=== PATIENT | female | born 1955 | race Caucasian/White ===

== ENCOUNTER 2021-02-10 08:59 | Inpatient (IN) ==
[2021-02-10] MEDS ORDERED: SODIUM CHLORIDE 0.9% 1000ML 1,000 ML IV STA (09:38)
[2021-02-10] MEDS ORDERED: dexAMETHasone**PF** 10 MG/ML VIAL IV ONE (09:38)
[2021-02-10 09:53] LABS: Hematocrit (blood only) 41.8 % (37-47); Mean Corpuscular Hemoglobin 29.6 pg (25-34); Mean Corpuscular Hgb Conc 33.5 g/dL (32-36); Mean Corpuscular Volume 88.4 fL (80-100); Mean Platelet Volume 10.7 fL (7.4-10.4); Platelet Count 198 K/uL (130-400); RDW Coefficient of Variation 13.3 % (11.5-14.5); RDW Standard Deviation 43.3 fL (36.4-46.3); Red Blood Count 4.73 M/uL (4.2-5.4)
[2021-02-10 10:07] LABS: INR 1.1 (0.9-1.1); Partial Thromboplastin Ratio 0.9; Partial Thromboplastin Time 23.9 Seconds (21.0-31.0); Prothrombin Time 10.8 Seconds (9.0-12.0)
[2021-02-10 10:11] LABS: Alanine Aminotransferase 68 U/L (12-78); Albumin Level 2.9 gm/dl (3.4-5.0); Aspartate Aminotransferase 105 U/L (15-37); BUN Creatinine Ratio 22.7 (10-20); Blood Urea Nitrogen 30 mg/dl (7-18); Calcium 8.8 mg/dl (8.5-10.1); Carbon Dioxide 28 mmol/L (21-32); Chloride 99 mmol/L (98-107); Creatinine Clr Calc Pharmacy 42.4 ml/min; Est GFR (African American) 48.3 ml/min; Est GFR (Non-African American) 41.6 ml/min; Glucose 122 mg/dl (70-99); Magnesium 2.1 mg/dl (1.8-2.4); Potassium 3.4 mmol/L (3.5-5.1); Sodium 135 mmol/L (136-145)
[2021-02-10 10:12] LABS: Basophils # (auto) 0.05 K/uL (0-0.2); Basophils % (auto) 0.6 %; Immature Granulocytes # (auto) 0.02 K/uL (0.00-0.02); Immature Granulocytes % (auto) 0.2 %; Lymphocytes # (auto) 0.91 K/uL (1.2-3.4); Lymphocytes % (auto) 10.8 %; Neutrophils # (auto) 6.92 K/uL (1.4-6.5); Neutrophils % (auto) 82.4 %
--- NOTE | 2021-02-10 10:13 | Emergency Department Note ---
Impression & Plan COVID-19, Hypoxia, Rapid atrial fibrillation ED Provider Note INFORMANT: Patient ED PROVIDER(S): Miles Monte MD CHIEF COMPLAINT: Illness PLAN: Disposition: Admitted Condition: Good Outpatient prescription management: none Referral: None MEDICAL DECISION MAKING: Patient presented to the ER because of illness. Her was diagnosed with COVID-19 as an outpatient. Confirmation Covid testing was performed. IV was established and he was hydrated. Patient was given IV Decadron as she was hypoxic. Chest x-ray was concerning for pneumonia. The patient's Covid test is positive. She had a chest CT performed due to a positive D-dimer and this was consistent with Covid pneumonia. Hiatal hernia noted per radiology as well. The patient will need further management in the hospital. Consultation was made with Dr. Marc Perez of the [facility] service. Patient was evaluated in the ER for further management. Triage Nursing notes reviewed and agree them. Vital Signs: reviewed and remarkable for hypoxia for EMS Differential diagnosis: COVID-19, reactive airway disease, pneumonia, pneumothorax, COPD, CHF, infections, cardiac ischemia, pulmonary embolism, musculoskeletal, gastrointestinal, as well as other pathologies. Diagnostics interpreted by me: ECG: Rate: 119 Rhythm: Atrial fibrillation [place]:Normal QRS:Normal ST segements: Nonspecific ST. No elevation or depression Other:No PACs or PVCs Cardiac Monitoring: Cardiac monitoring ordered by me: The patient was placed on continuous cardiac monitoring and observed. It revealed a normal sinus rhythm at 78 beats per minute. Imaging studies: Chest x-ray concerning for pneumonia. CT imaging did not reveal any evidence of fibrillation. Covid pneumonia findings present. Hiatal hernia noted. I refer you to the EMR for further details. HPI: The patient is a 65 year old female who presents to the Emergency Room with complaints of illness. This started 2 weeks ago, her was diagnosed with COVID-19. The patient also notes the following associated symptoms, diarrhea, nausea, fevers, chills shortness of breath, weakness, and cough. The patient has found no relieving factors. Patient was prescribed prednisone by her PCP but did not take it. Patient also notes some mild back pain with coughing. Current pain is rated as 2/10. Patient's O2 saturation for EMS was 86%. Pt denies LOC, headache, diaphoresis, visual changes, neck pain, chest pain, vomiting, melena, hematochezia, urinary symptoms, numbness, weakness, lymphadenopathy, rash, or other complaints. ROS: See above HPI for pertinent positives & negatives. A total of 10 systems reviewed and were otherwise negative. PAST MEDICAL HISTORY:See Below , atrial fibrillation. Anticoagulated. PAST SURGICAL HISTORY:See Below, FAMILY HISTORY:See Below SOCIAL HISTORY:See Below, HOME MEDICATIONS:See Below ALLERGIES:See Below VITALS:See Below PHYSICAL EXAMINATION: GENERAL: Awake,tired, dyspneic-appearing, in no distress HENT: Normocephalic, atraumatic. Oropharynx unremarkable. EYES: Normal conjunctiva. Sclera non-icteric. NECK: Inspection normal. Non-tender. Supple. No nuchal rigidity. FROM. No masses. RESPIRATORY: Few scattered crackles otherwise clear to auscultation. No wheezes. Increased respiratory effort. CARDIAC: Tachycardic rate. Irregular rhythm. No murmurs. No rubs. Extremities warm and well perfused. Pulses equal. No JVD. GI: Soft, non-distended. No tenderness to palpation. No rebound or guarding. No masses. RECTAL: Deferred. MUSCULOSKELETAL: Atraumatic. Chest examination reveals no tenderness. The back is symmetrical on inspection without obvious abnormality. There is no CVA tenderness to palpation. No joint edema. LOWER EXTREMITIES: Calves are equal size bilaterally and non-tender. No edema. No discoloration. NEURO: Normal sensorium. No sensory or motor deficits noted. SKIN: No rash or jaundice noted. CRITICAL CARE: I have personally spent greater than 35 minutes of critical care time in the direct management of this patient. This includes bedside care, interpretation of diagnostic studies, and testing, discussion with consultants, patient, and family members, and other required patient management activities. These minutes are in excess of all separately billable procedures. Miles Monte MD Past Med/Surg History Medical History (Updated 02/10/21 @ 12:44 by Marc Perez MD) Hypothyroid Surgical History No pertinent past surgical history Social History Smoking Status: Never smoker Second Hand Exposure: No; Hx Alcohol Use: Yes Alcohol type: wine Hx Substance Use: No Preferred Language: Belgian Communication Ability: Effective Field Assembly Supervisor Required: No Beliefs That Will Affect Care: None Current Living Situation: Spouse Feels Safe at Home: Yes Assistive Devices: None Allergies Allergies Allergy/AdvReac Type Severity Reaction Status Date / Time No Known Drug Allergies Allergy Unknown NKDA Verified 02/10/21 10:54 Home Meds Home Medications Medication Instructions Recorded Confirmed levothyroxine 25 mcg tablet 25 mcg PO QAM 01/14/20 02/10/21 (Levoxyl) spironolactone 25 mg tablet 75 mg PO QAM 01/14/20 02/10/21 acetaminophen 500 mg tablet 500 mg PO Q6H PRN 02/10/21 02/10/21 (Tylenol Extra Strength) aspirin 81 mg tablet,delayed 81 mg PO QAM 02/10/21 02/10/21 release torsemide 20 mg tablet 10 mg PO QAM 02/10/21 02/10/21 Results & Data (ED) Vital Signs Vital Signs - 24 hr 02/10/21 09:07 02/10/21 09:08 02/10/21 10:03 Temperature 36.9 C Temperature Source Oral Pulse Rate 114 H 118 H Pulse Rate [Apical] Pulse Rate from SpO2 Sensor 98 H Pulse Rhythm [Apical] Pulse Strength [Apical] Respiratory Rate 20 21 Respiratory Effort / Characteristics Respiratory Depth Respiratory Pattern Blood Pressure 107/80 107/80 Blood Pressure [Right Arm] Blood Pressure Mean 89 89 Blood Pressure Mean [Right Arm] Blood Pressure Position [Right Arm] Pulse Oximetry 89 L 95 94 Oxygen Delivery Method Room Air Nasal Cannula Nasal Cannula Oxygen Flow Rate 2 Sepsis Recent Fever Within 48 Hours No Sepsis New/Unexplained Change in Mental Status No Sepsis Action Taken by Nursing No Action Required 02/10/21 10:05 02/10/21 10:38 02/10/21 11:00 Temperature Temperature Source Pulse Rate 120 H 124 H 110 H Pulse Rate [Apical] Pulse Rate from SpO2 Sensor 96 H 124 H 97 H Pulse Rhythm [Apical] Pulse Strength [Apical] Respiratory Rate 20 21 Respiratory Effort / Characteristics Respiratory Depth Respiratory Pattern Blood Pressure 116/88 107/82 Blood Pressure [Right Arm] Blood Pressure Mean 97 90 Blood Pressure Mean [Right Arm] Blood Pressure Position [Right Arm] Pulse Oximetry 94 93 95 Oxygen Delivery Method Nasal Cannula Nasal Cannula Nasal Cannula Oxygen Flow Rate 2 2 2 Sepsis Recent Fever Within 48 Hours Sepsis New/Unexplained Change in Mental Status Sepsis Action Taken by Nursing 02/10/21 11:07 02/10/21 11:30 Temperature Temperature Source Pulse Rate 110 H Pulse Rate [Apical] 127 H Pulse Rate from SpO2 Sensor 103 H Pulse Rhythm [Apical] Regular Pulse Strength [Apical] Normal Respiratory Rate 20 22 Respiratory Effort / Characteristics Non-Labored Spontaneous Respiratory Depth Normal Respiratory Pattern Regular Blood Pressure 124/83 Blood Pressure [Right Arm] 107/82 Blood Pressure Mean 96 Blood Pressure Mean [Right Arm] 90 Blood Pressure Position [Right Arm] Lying Pulse Oximetry 97 97 Oxygen Delivery Method Nasal Cannula Nasal Cannula Oxygen Flow Rate 2 2 Sepsis Recent Fever Within 48 Hours Sepsis New/Unexplained Change in Mental Status Sepsis Action Taken by Nursing Laboratory Data Result diagrams: 02/10/21 09:41 02/10/21 09:41 Lab Results 02/10/21 02/10/21 02/10/21 Range/Units 09:41 09:41 09:41 WBC 8.40 (4.8-10.8) K/uL RBC 4.73 (4.2-5.4) M/uL Hgb 14.0 (12.0-16.0) g/dL Hct 41.8 (37-47) % MCV 88.4 (80-100) fL MCH 29.6 (25-34) pg MCHC 33.5 (32-36) g/dL RDW Std Deviation 43.3 (36.4-46.3) fL RDW Coeff of Nadege 13.3 (11.5-14.5) % Plt Count 198 (130-400) K/uL MPV 10.7 H (7.4-10.4) fL Immature Gran % (Auto) 0.2 % Neut % (Auto) 82.4 % Lymph % (Auto) 10.8 % [place] % (Auto) 6.0 % Eos % (Auto) 0.0 % Baso % (Auto) 0.6 % Neut # (Auto) 6.92 H (1.4-6.5) K/uL Lymph # (Auto) 0.91 L (1.2-3.4) K/uL [place] # (Auto) 0.50 (0.11-0.59) K/uL Eos # (Auto) 0.00 (0-0.5) K/uL Baso # (Auto) 0.05 (0-0.2) K/uL Immature Gran # (Auto) 0.02 (0.00-0.02) K/uL PT 10.8 (9.0-12.0) Seconds INR 1.1 (0.9-1.1) APTT 23.9 (21.0-31.0) Seconds PTT Ratio 0.9 D-Dimer 2110 H* (0-500) ug/L FEU Sodium 135 L (136-145) mmol/L Potassium 3.4 L (3.5-5.1) mmol/L Chloride 99 (98-107) mmol/L Carbon Dioxide 28 (21-32) mmol/L Anion Gap 8.0 (3-11) BUN 30 H (7-18) mg/dl Creatinine 1.32 H (0.6-1.2) mg/dl Est Cr Clr Drug Dosing 42.4 ml/min Est GFR ( Amer) 48.3 ml/min Est GFR (Non-Af Amer) 41.6 ml/min BUN/Creatinine Ratio 22.7 H (10-20) Glucose 122 H (70-99) mg/dl Calcium 8.8 (8.5-10.1) mg/dl Magnesium 2.1 (1.8-2.4) mg/dl Total Bilirubin 1.3 H (0.2-1) mg/dl AST 105 H (15-37) U/L ALT 68 (12-78) U/L Alkaline Phosphatase 66 (45-117) U/L Troponin I < 0.015 (0-0.045) ng/ml NT-Pro-B Natriuret Pep 607 (0-900) pg/ml Total Protein 7.4 (6.4-8.2) gm/dl Albumin 2.9 L (3.4-5.0) gm/dl Globulin 4.5 H (2.5-4.0) gm/dl Albumin/Globulin Ratio 0.6 L (0.9-2) Procalcitonin (0-0.5) ng/ml COVID-19 Eval Order SARS-CoV-2 (PCR) (Negative) 02/10/21 02/10/21 02/10/21 Range/Units 09:41 10:18 10:18 WBC (4.8-10.8) K/uL RBC (4.2-5.4) M/uL Hgb (12.0-16.0) g/dL Hct (37-47) % MCV (80-100) fL MCH (25-34) pg MCHC (32-36) g/dL RDW Std Deviation (36.4-46.3) fL RDW Coeff of Nadege (11.5-14.5) % Plt Count (130-400) K/uL MPV (7.4-10.4) fL Immature Gran % (Auto) % Neut % (Auto) % Lymph % (Auto) % [place] % (Auto) % Eos % (Auto) % Baso % (Auto) % Neut # (Auto) (1.4-6.5) K/uL Lymph # (Auto) (1.2-3.4) K/uL [place] # (Auto) (0.11-0.59) K/uL Eos # (Auto) (0-0.5) K/uL Baso # (Auto) (0-0.2) K/uL Immature Gran # (Auto) (0.00-0.02) K/uL PT (9.0-12.0) Seconds INR (0.9-1.1) APTT (21.0-31.0) Seconds PTT Ratio D-Dimer (0-500) ug/L FEU Sodium (136-145) mmol/L Potassium (3.5-5.1) mmol/L Chloride (98-107) mmol/L Carbon Dioxide (21-32) mmol/L Anion Gap (3-11) BUN (7-18) mg/dl Creatinine (0.6-1.2) mg/dl Est Cr Clr Drug Dosing ml/min Est GFR ( Amer) ml/min Est GFR (Non-Af Amer) ml/min BUN/Creatinine Ratio (10-20) Glucose (70-99) mg/dl Calcium (8.5-10.1) mg/dl Magnesium (1.8-2.4) mg/dl Total Bilirubin (0.2-1) mg/dl AST (15-37) U/L ALT (12-78) U/L Alkaline Phosphatase (45-117) U/L Troponin I (0-0.045) ng/ml NT-Pro-B Natriuret Pep (0-900) pg/ml Total Protein (6.4-8.2) gm/dl Albumin (3.4-5.0) gm/dl Globulin (2.5-4.0) gm/dl Albumin/Globulin Ratio (0.9-2) Procalcitonin 0.38 (0-0.5) ng/ml COVID-19 Eval Order Covid19 at [facility] SARS-CoV-2 (PCR) POSITIVE A* (Negative) Administered Medications Sodium Chloride (Nss 1000ml) 1,000 mls @ 125 mls/hr IV .Q8H STA Stop: 02/10/21 17:37 Last Admin: 02/10/21 10:11 Dose: 125 mls/hr Documented by: [id number] Discontinued Medications Dexamethasone Sodium Phosphate (DexamethasonePf 10 Mg/Ml Vial) 6 mg IV NOW ONE Stop: 02/10/21 09:39 Last Admin: 02/10/21 10:11 Dose: 6 mg Documented by: [id number] Potassium Chloride (K Rocael / Wtr) 10 meq in 100 mls @ 100 mls/hr IV ONE ONE Stop: 02/10/21 11:15 Last Infusion: 02/10/21 16:32 Dose: 0 mls/hr Documented by: [id number] Admin: 02/10/21 11:10 Dose: 100 mls/hr Documented by: [id number] Ioversol (Optiray 320 125ml) 120 ml IV ONCE ONE Stop: 02/10/21 10:28 Last Admin: 02/10/21 10:28 Dose: 120 ml Documented by: [id number] Potassium Chloride (Potassium Chloride Crtab 20 Meq Tabcr) 40 meq PO NOW STA Stop: 02/10/21 10:17 Last Admin: 02/10/21 11:07 Dose: 40 meq Documented by: [id number] Imaging Data Radiologist's Impression: Chest X-Ray 02/10/21 09:33 SINGLE VIEW CHEST CLINICAL HISTORY: Cough and dyspnea. FINDINGS: An AP, portable, upright chest radiograph is compared to study dated 01/14/2020. The heart is top normal for projection.. Multifocal airspace consolidation is seen throughout both lungs. No large pleural effusion or pneumothorax is identified. The skeletal structures are osteopenic. The bony thorax is grossly intact. IMPRESSION: Multifocal airspace consolidation is atypical for pneumonia. Clinical correlation will be required and radiographic follow-up to resolution is recommended. ACT 112: Negative or not required by law. Electronically signed by: Scottie Tinoco M.D. 02/10/2021 10:43 AM Chest CTA 02/10/21 10:18 CHEST CTA for PULMONARY ARTERIES CT DOSE: 517.30 mGycm HISTORY: Positive Covid. Positive d-dimer. Weakness. Shortness of breath. TECHNIQUE: Multiaxial CT images of the chest were performed following the intravenous administration of contrast to evaluate the pulmonary arteries. Maximal intensity projection images were also obtained. A dose lowering technique was utilized adhering to the principles of ALARA. COMPARISON STUDY: None. FINDINGS: Normal caliber thoracic aorta with no evidence for dissection. Nondiagnostic evaluation of the subsegmental pulmonary arteries within the bilateral lower lobes due to the respiratory motion artifact. However, the remaining pulmonary arteries show no filling defects to suggest a pulmonary embolus. The heart is borderline enlarged. No pleural or pericardial effusions. No significant mediastinal lymphadenopathy. A few prominent right hilar lymph nodes. These may be reactive. There is a large hiatus hernia containing the majority of the stomach. Questionable masslike filling defect within the herniated stomach best seen on image 76 which measures 3.4 cm. However, this could represent the collapsed stomach rather than a lesion. Limited views of the upper abdomen demonstrate a normal liver and spleen. No suspicious lytic or blastic osseous lesions. No pneumothorax. The central airways are patent. Multifocal scattered groundglass airspace opacities are seen throughout the lungs. This is consistent with a multifocal viral pneumonia. IMPRESSION: 1. No evidence for pulmonary embolus. 2. Multifocal groundglass airspace opacities seen throughout the lungs consistent with Covid pneumonia. 3. Large hiatus hernia containing the majority the stomach. There is a possible 3.4 cm mass within the herniated stomach. However, this could represent the normal appearing collapsed stomach. Follow-up nonemergent endoscopy or upper GI series is recommended once the patient's pneumonia has resolved for further evaluation. ACT 112: Positive. There are findings on this exam that require communication between the performing entity and the patient following Patient Test Result Information Act ([place] Act 112) guidelines. Electronically signed by: Samuel Goldberg M.D. 02/10/2021 10:54 AM Discharge Plan Visit Data Chief Complaint: Illness Stated Complaint: SOB, DIARRHEA, COVID EXP. ED Provider: Miles Monte Discharge Problem: COVID-19, Hypoxia, Rapid atrial fibrillation Patient Disposition: Admitted As Inpatient Discharge Instructions Interventions: ED Discharge Assessment Last Done: 02/10/21 15:15
[2021-02-10 10:16] LABS: Albumin Globulin Ratio 0.6 (0.9-2); Alkaline Phosphatase 66 U/L (45-117); Bilirubin,Total 1.3 mg/dl (0.2-1); D Dimer 2110 ug/L FEU (0-500); Globulin 4.5 gm/dl (2.5-4.0); NT Pro B Type Natriuretic Pept 607 pg/ml (0-900); Total Protein 7.4 gm/dl (6.4-8.2); Troponin I < 0.015 ng/ml (0-0.045)
[2021-02-10] MEDS ORDERED: POTASSIUM CHLORIDE CRTAB 20 MEQ TABCR PO STA (10:16)
[2021-02-10] MEDS ORDERED: POTASSIUM CHLORIDE / WTR 10 MEQ/100 ML PLCT IV ONE (10:16)
[2021-02-10] MEDS ORDERED: OPTIRAY 320 125ml IV ONE (10:27)
--- NOTE | 2021-02-10 10:44 | XRay Report ---
SINGLE VIEW CHEST CLINICAL HISTORY: Cough and dyspnea. FINDINGS: An AP, portable, upright chest radiograph is compared to study dated 01/14/2020. The heart i s top normal for projection.. Multifocal airspace consolidation is seen throughout both lungs. No lar ge pleural effusion or pneumothorax is identified. The skeletal structures are osteopenic. The bony t horax is grossly intact. IMPRESSION: Multifocal airspace consolidation is atypical for pneumonia. Clinical correlation will be required and radiographic follow-up to resolution is recommended. ACT 112: Negative or not required by law. Electronically signed by: Scottie Tinoco M.D. 02/10/2021 10:43 AM
--- NOTE | 2021-02-10 10:55 | CT Scan Report ---
CHEST CTA for PULMONARY ARTERIES CT DOSE: 517.30 mGycm HISTORY: Positive Covid. Positive d-dimer. Weakness. Shortness of breath. TECHNIQUE: Multiaxial CT images of the chest were performed following the intravenous administration of contrast to evaluate the pulmonary arteries. Maximal intensity projection images were also obtaine d. A dose lowering technique was utilized adhering to the principles of ALARA. COMPARISON STUDY: None. FINDINGS: Normal caliber thoracic aorta with no evidence for dissection. Nondiagnostic evaluation of the subsegmental pulmonary arteries within the bilateral lower lobes due to the respiratory motion ar tifact. However, the remaining pulmonary arteries show no filling defects to suggest a pulmonary embo darrel. The heart is borderline enlarged. No pleural or pericardial effusions. No significant mediastina l lymphadenopathy. A few prominent right hilar lymph nodes. These may be reactive. There is a large h iatus hernia containing the majority of the stomach. Questionable masslike filling defect within the herniated stomach best seen on image 76 which measures 3.4 cm. However, this could represent the esther apsed stomach rather than a lesion. Limited views of the upper abdomen demonstrate a normal liver and spleen. No suspicious lytic or blastic osseous lesions. No pneumothorax. The central airways are pat ent. Multifocal scattered groundglass airspace opacities are seen throughout the lungs. This is consi stent with a multifocal viral pneumonia. IMPRESSION: 1. No evidence for pulmonary embolus. 2. Multifocal groundglass airspace opacities seen throughout the lungs consistent with Covid pneumoni a. 3. Large hiatus hernia containing the majority the stomach. There is a possible 3.4 cm mass within th e herniated stomach. However, this could represent the normal appearing collapsed stomach. Follow-up nonemergent endoscopy or upper GI series is recommended once the patient's pneumonia has resolved for further evaluation. ACT 112: Positive. There are findings on this exam that require communication between the performing entity and the patient following Patient Test Result Information Act ([place] Act 112) guidelines. Electronically signed by: Samuel Goldberg M.D. 02/10/2021 10:54 AM
--- NOTE | 2021-02-10 11:39 | History & Physical Report ---
Date of Service February 10, 2021 Assessment & Plan (1) Atrial fibrillation with RVR: Plan: A. fib with RVR/PAF- Suspect secondary to physiologic stress of COVID-19 pneumonia and hypoxia, along with hypokalemia and dehydration. The patient will be admitted to telemetry for serial cardiac enzymes, serial EKG's, cardiac rhythm monitoring and a 2-D echocardiogram with Dopplers. Optimize potassium to 4 and magnesium to 2 with oral and IV supplementation Recheck laboratories in a.m. Lovenox 1 mg/kg subcu every 12 hours Consult cardiology (2) Pneumonia due to COVID-19 virus: Plan: Pneumonia/bronchitis due to COVID-19/with hypoxia- Dexamethasone 6 mg IV daily Albuterol HFA 2 puffs 4 times daily and every 2 hours as needed DuoNebs every 2 hours as needed Guaifenesin extended release 1200 mg p.o. every 12 hours Hycodan syrup 5 mils p.o. every 4 hours as needed severe cough Azithromycin 500 mg IV daily Nasal cannula oxygen, titrate to keep pulse ox around 95% Monitor closely for secondary bacterial pneumonia (3) Bronchitis due to 2019 novel coronavirus: Plan: See above (4) Hypoxia: Plan: See above (5) Edema: Plan: Hold on torsemide and spironolactone due to relatively dehydrated state (6) Acute kidney injury: Plan: Creatinine 1.32 upon admission, baseline 1.07 Hold diuretics as noted above. 1 L fluid to be given IV Recheck laboratories in a.m. (7) Transaminitis: Plan: AST 105 on admission. Likely secondary to Covid pneumonia (8) Hiatal hernia: Plan: Hiatal hernia/question 3.4 cm stomach mass versus flattened stomach on CT- Recommendation for outpatient gastroenterology assessment once Covid 19 infection resolved (9) Hypokalemia: Plan: See above History of Present Illness Chief Complaint: The patient presents to the emergency department with productive cough, shortness of breath, dyspnea on exertion and palpitations, that initially began develop about 2 weeks ago having been tested positive in the outpatient setting for COVID-19 along with her , Primary Care Provider: Benjamin Gonzalez The patient is a 65-year-old female with a past medical history including paroxysmal atrial fibrillation, rectocele, hypothyroidism, edema who presents with symptoms as noted above. Abnormal laboratories: AST 105, total bili 1.3, albumin 2.9, potassium 3.4, creatinine 1.32 with baseline 1.07, D-dimer 2110 and COVID-19 positive test Imaging studies: Chest x-ray showing multifocal pneumonia CT angiography of chest PE protocol: No evidence for PE. Multiple groundglass airspace opacities seen throughout the lungs consistent with Covid pneumonia. Large hiatus hernia containing the majority of the stomach. There is a possible 3.4 cm mass within the herniated stomach, however this could represent a normal- appearing collapsed stomach. Nonemergent endoscopy or upper GI series recommended once the patient is pneumonia is resolved for further evaluation. Treatment by the emergency department included the following: Dexamethasone 6 mg IV, Klor-Con 40 mEq p.o., KCl rider 10 mEq IV x1, and NSS at 125 mils per hour. Allergies Allergy/AdvReac Type Severity Reaction Status Date / Time No Known Drug Allergies Allergy Unknown NKDA Verified 02/10/21 10:54 Home Medications Medication Instructions Recorded Confirmed Type levothyroxine 25 mcg tablet 25 mcg PO QAM 01/14/20 02/10/21 History (Levoxyl) spironolactone 25 mg tablet 75 mg PO QAM 01/14/20 02/10/21 History acetaminophen 500 mg tablet 500 mg PO Q6H PRN 02/10/21 02/10/21 History (Tylenol Extra Strength) aspirin 81 mg tablet,delayed 81 mg PO QAM 02/10/21 02/10/21 History release torsemide 20 mg tablet 10 mg PO QAM 02/10/21 02/10/21 History Past Med/Surg History Medical History (Updated 02/10/21 @ 12:44 by Marc Perez MD) Hypothyroid Surgical History No pertinent past surgical history Social History Smoking Status: Never smoker Hx Alcohol Use: Yes Hx Substance Use: No Feels Safe at Home: Yes Review of Systems Review of Systems: The patient denies chest pain, palpitations, lower extremity swelling, sore throat, fevers, chills, sweats, nausea, vomiting, diarrhea , constipation, abdominal pain, pelvic pain, blood in urine or stool, dysuria, urinary frequency or urgency, lightheadedness, dizziness, headache, memory loss, loss of consciousness, rash, abnormal bruising or bleeding, imbalance, focal weakness, numbness or tingling in arms or legs, generalized arthralgias or myalgias, back or neck pain, or night sweats. The review of systems is otherwise negative other than for that already noted above, and at least 10 systems have been reviewed. Physical Exam Physical Exam: The patient is awake, alert and oriented 3, well developed and well nourished, normocephalic and atraumatic, lying in bed and in no acute distress. HEENT--PERRL, EOMI, mucous membranes and oropharynx dry. Neck--supple. No JVD. No bruits. Thyroid normal, trachea midline, no adenopathy. Heart--irregularly irregular, tachycardic. No murmurs, rubs or gallops. Lungs--diffuse inspiratory next-door wheezing bilaterally. Scattered coarse breath sounds. Mild to moderate respiratory distress, no accessory muscle use. Abdomen--normal bowel sounds and soft. Nontender. Nondistended, no hernias or masses, no organomegaly. Extremities--no cyanosis or clubbing. No edema. Dermatologic--normal skin turgor, normal color, no abnormal lymph nodes, no rash. Neurologic--cranial nerves II through XII grossly intact. Rheumatologic--normal range of motion. Psychiatric--normal affect. Results & Data Results & Data ([facility]) Vital Signs (Past 12 Hours) Vital Signs Temp Pulse Pulse Resp BP BP Pulse Ox 02/10/21 11:07 127 H 20 107/82 97 02/10/21 11:00 110 H 21 107/82 95 02/10/21 10:38 124 H 93 02/10/21 10:05 120 H 20 116/88 94 02/10/21 10:03 94 02/10/21 09:08 118 H 21 107/80 95 02/10/21 09:07 98.4 F 114 H 20 107/80 89 L Laboratory Results Laboratory Results WBC 8.40 K/uL (4.8-10.8) 02/10/21 09:41 RBC 4.73 M/uL (4.2-5.4) 02/10/21 09:41 Hgb 14.0 g/dL (12.0-16.0) 02/10/21 09:41 Hct 41.8 % (37-47) 02/10/21 09:41 MCV 88.4 fL (80-100) 02/10/21 09:41 MCH 29.6 pg (25-34) 02/10/21 09:41 MCHC 33.5 g/dL (32-36) 02/10/21 09:41 RDW Std Deviation 43.3 fL (36.4-46.3) 02/10/21 09:41 RDW Coeff of Nadege 13.3 % (11.5-14.5) 02/10/21 09:41 Plt Count 198 K/uL (130-400) 02/10/21 09:41 MPV 10.7 fL (7.4-10.4) H 02/10/21 09:41 Immature Gran % (Auto) 0.2 % 02/10/21 09:41 Neut % (Auto) 82.4 % 02/10/21 09:41 Lymph % (Auto) 10.8 % 02/10/21 09:41 [place] % (Auto) 6.0 % 02/10/21 09:41 Eos % (Auto) 0.0 % 02/10/21 09:41 Baso % (Auto) 0.6 % 02/10/21 09:41 Neut # (Auto) 6.92 K/uL (1.4-6.5) H 02/10/21 09:41 Lymph # (Auto) 0.91 K/uL (1.2-3.4) L 02/10/21 09:41 [place] # (Auto) 0.50 K/uL (0.11-0.59) 02/10/21 09:41 Eos # (Auto) 0.00 K/uL (0-0.5) 02/10/21 09:41 Baso # (Auto) 0.05 K/uL (0-0.2) 02/10/21 09:41 Immature Gran # (Auto) 0.02 K/uL (0.00-0.02) 02/10/21 09:41 PT 10.8 Seconds (9.0-12.0) 02/10/21 09:41 INR 1.1 (0.9-1.1) 02/10/21 09:41 APTT 23.9 Seconds (21.0-31.0) 02/10/21 09:41 PTT Ratio 0.9 02/10/21 09:41 D-Dimer 2110 ug/L FEU (0-500) H* 02/10/21 09:41 Sodium 135 mmol/L (136-145) L 02/10/21 09:41 Potassium 3.4 mmol/L (3.5-5.1) L 02/10/21 09:41 Chloride 99 mmol/L (98-107) 02/10/21 09:41 Carbon Dioxide 28 mmol/L (21-32) 02/10/21 09:41 Anion Gap 8.0 (3-11) 02/10/21 09:41 BUN 30 mg/dl (7-18) H 02/10/21 09:41 Creatinine 1.32 mg/dl (0.6-1.2) H 02/10/21 09:41 Est Cr Clr Drug Dosing 42.4 ml/min 02/10/21 09:41 Est GFR ( Amer) 48.3 ml/min 02/10/21 09:41 Est GFR (Non-Af Amer) 41.6 ml/min 02/10/21 09:41 BUN/Creatinine Ratio 22.7 (10-20) H 02/10/21 09:41 Glucose 122 mg/dl (70-99) H 02/10/21 09:41 Calcium 8.8 mg/dl (8.5-10.1) 02/10/21 09:41 Magnesium 2.1 mg/dl (1.8-2.4) 02/10/21 09:41 Total Bilirubin 1.3 mg/dl (0.2-1) H 02/10/21 09:41 AST 105 U/L (15-37) H 02/10/21 09:41 ALT 68 U/L (12-78) 02/10/21 09:41 Alkaline Phosphatase 66 U/L (45-117) 02/10/21 09:41 Troponin I < 0.015 ng/ml (0-0.045) 02/10/21 09:41 NT-Pro-B Natriuret Pep 607 pg/ml (0-900) 02/10/21 09:41 Total Protein 7.4 gm/dl (6.4-8.2) 02/10/21 09:41 Albumin 2.9 gm/dl (3.4-5.0) L 02/10/21 09:41 Globulin 4.5 gm/dl (2.5-4.0) H 02/10/21 09:41 Albumin/Globulin Ratio 0.6 (0.9-2) L 02/10/21 09:41 Procalcitonin 0.38 ng/ml (0-0.5) 02/10/21 09:41 Urine Color Yellow 02/10/21 12:23 Urine Appearance Clear (Clear) 02/10/21 12:23 Urine pH 6.0 (4.5-7.5) 02/10/21 12:23 Ur Specific [place] > 1.045 (1.000-1.030) H 02/10/21 12:23 Urine Protein 1+ (Negative) H 02/10/21 12:23 Urine Glucose (UA) Negative (Negative) 02/10/21 12:23 Urine Ketones Negative (Negative) 02/10/21 12:23 Urine Blood Trace (Negative) H 02/10/21 12:23 Urine Nitrite Negative (Negative) 02/10/21 12:23 Urine Bilirubin Negative (Negative) 02/10/21 12:23 Urine Urobilinogen Negative (Negative) 02/10/21 12:23 Ur Leukocyte Esterase Negative (Negative) 02/10/21 12:23 Urine WBC (Auto) 1-5 /hpf (0-5) 02/10/21 12:23 Urine RBC (Auto) 0-4 /hpf (0-4) 02/10/21 12:23 U Hyaline Cast (Auto) 1-5 /lpf (0-5) 02/10/21 12:23 U Epithel Cells (Auto) 20-30 /lpf (0-5) H 02/10/21 12:23 Urine Bacteria (Auto) Negative (Negative) 02/10/21 12:23 COVID-19 Eval Order Covid19 at [facility] 02/10/21 10:18 SARS-CoV-2 (PCR) POSITIVE (Negative) A* 02/10/21 10:18 Impressions Chest X-Ray 02/10/21 09:33 SINGLE VIEW CHEST CLINICAL HISTORY: Cough and dyspnea. FINDINGS: An AP, portable, upright chest radiograph is compared to study dated 01/14/2020. The heart is top normal for projection.. Multifocal airspace consolidation is seen throughout both lungs. No large pleural effusion or pneumothorax is identified. The skeletal structures are osteopenic. The bony thorax is grossly intact. IMPRESSION: Multifocal airspace consolidation is atypical for pneumonia. Clinical correlation will be required and radiographic follow-up to resolution is recommended. ACT 112: Negative or not required by law. Electronically signed by: Scottie Tinoco M.D. 02/10/2021 10:43 AM Chest CTA 02/10/21 10:18 CHEST CTA for PULMONARY ARTERIES CT DOSE: 517.30 mGycm HISTORY: Positive Covid. Positive d-dimer. Weakness. Shortness of breath. TECHNIQUE: Multiaxial CT images of the chest were performed following the intravenous administration of contrast to evaluate the pulmonary arteries. Maximal intensity projection images were also obtained. A dose lowering techni que was utilized adhering to the principles of ALARA. COMPARISON STUDY: None. FINDINGS: Normal caliber thoracic aorta with no evidence for dissection. Nondiagnostic evaluation of the subsegmental pulmonary arteries within the bilateral lower lobes due to the respiratory motion artifact. However, the remaining pulmonary arteries show no filling defects to suggest a pulmonary embolus. The heart is borderline enlarged. No pleural or pericardial effusions. No significant mediastinal lymphadenopathy. A few prominent right hilar lymph nodes. These may be reactive. There is a large hiatus hernia containing the majority of the stomach. Questionable masslike filling defect within the herniated stomach best seen on image 76 which measures 3.4 cm. However, this could represent the collapsed stomach rather than a lesion. Limited views of the upper abdomen demonstrate a normal liver and spleen. No suspicious lytic or blastic osseous lesions. No pneumothorax. The central airways are patent. Mult ifocal scattered groundglass airspace opacities are seen throughout the lungs. This is consistent with a multifocal viral pneumonia. IMPRESSION: 1. No evidence for pulmonary embolus. 2. Multifocal groundglass airspace opacities seen throughout the lungs consistent with Covid pneumonia. 3. Large hiatus hernia containing the majority the stomach. There is a possible 3.4 cm mass within the herniated stomach. However, this could represent the normal appearing collapsed stomach. Follow-up nonemergent endoscopy or upper GI series is recommended once the patient's pneumonia has resolved for further evaluation. ACT 112: Positive. There are findings on this exam that require communication between the performing entity and the patient following Patient Test Result Information Act ([place] Act 112) guidelines. Electronically signed by: aSmuel Goldberg M.D. 02/10/2021 10:54 AM ECG Additional Comments: GILMAR LEE ID:[id number] 10-FEB-2021 09:07:41 [facility]- EDSTAT ROUTINE RETRIEVAL Atrial fibrillation with rapid ventricular response Minimal voltage criteria for LVH, may be normal variant Nonspecific T wave abnormality Abnormal ECG When compared with ECG of 14-JAN-2020 09:25, Atrial fibrillation has replaced Sinus rhythm Vent. rate has increased BY 56 BPM Nonspecific T wave abnormality now evident in Lateral leads 25mm/s 10mm/mV 150Hz 9.0.9 12SL 241 HD TEOFILO: 12 Referred by: REFERRED SELF Unconfirmed Vent. rate 119 BPM ND interval * ms QRS duration 80 ms QT/QTc 320/450 ms P-R-T axes * - -1955 (65 yr) Female 1lb Room: Loc:15 Code Status & VTE Plan Code Status Full code VTE Prophylaxis Plan VTE Prophylaxis will be ordered: Yes PG Care Time/CCT Total # of Minutes Spent Total Time Spent with Patient: Total time spent is greater than 50% in coordination of care (as documented) at patient's floor/unit and/or counseling patient: Coding Level of Care Code 45591 Initial Inpt Care Lvl 3 Diagnoses Atrial fibrillation with RVR I48.91 Pneumonia due to COVID-19 virus U07.1; J12.82 Hypoxia R09.02 Edema R60.9 Acute kidney injury N17.9 Transaminitis R74.01 Hiatal hernia K44.9 Hypokalemia E87.6 Bronchitis due to 2019 novel coronavirus U07.1; J40
[2021-02-10] MEDS ORDERED: LORazepam 3 MG/6 ML VIAL IV PRN (11:56)
[2021-02-10] MEDS ORDERED: LORazepam 2 MG/4 ML VIAL IV PRN (11:56)
[2021-02-10] MEDS ORDERED: ATIVAN IV ALCOHOL WITHDRAWL IV PRN (11:56)
[2021-02-10] MEDS ORDERED: LORazepam 1 MG/2 ML VIAL IV PRN (11:56)
[2021-02-10 12:40] LABS: Appearance Urine Clear (Clear); Bacteria Urine Automated Negative (Negative); Bilirubin Urine Negative (Negative); Blood Urine Trace (Negative); Color Urine Yellow; Epithelial Cell Urine Auto 20-30 /lpf (0-5); Glucose Urine UA Negative (Negative); Ketones Urine Negative (Negative); Leukocyte Esterase Urine Negative (Negative); Nitrite Urine Negative (Negative); Protein Urine 1+ (Negative); RBC Urine Automated 0-4 /hpf (0-4); Specific Gravity Urine > 1.045 (1.000-1.030); Urobilinogen Urine Negative (Negative)
--- NOTE | 2021-02-10 13:24 | Electrocardiogram Report ---
Test Reason : Blood Pressure : / mmHG Vent. Rate : 119 BPM Atrial Rate : 117 BPM P-R Int : 000 ms QRS Dur : 080 ms QT Int : 320 ms P-R-T Axes : 000 -01 -11 degrees QTc Int : 450 ms Atrial fibrillation with rapid ventricular response Minimal voltage criteria for LVH, may be normal variant Nonspecific T wave abnormality Abnormal ECG When compared with ECG of 14-JAN-2020 09:25, Atrial fibrillation has replaced Sinus rhythm Vent. rate has increased BY 56 BPM Nonspecific T wave abnormality now evident in Lateral leads Confirmed by Dylan Strickland ([id number]) on 02/10/2021 1:23:39 PM Referred By: REFERRED SELF Confirmed By:Elian Strickland
[2021-02-10] MEDS ORDERED: METOPROLOL TARTRATE 1 MG/ML VIAL IV PRN (15:13)
[2021-02-10] MEDS ORDERED: ONDANSETRON INJ 2 MG/ML 2 ML VIAL IV PRN (15:13)
[2021-02-10] MEDS ORDERED: ACETAMINOPHEN HOME PACK 500 MG TABLET PO PRN (15:13)
[2021-02-10] MEDS ORDERED: ALBUT/IPRATROP 3MG/0.5MG NEB 3 ML VIAL NEB PRN (15:13)
[2021-02-10] MEDS ORDERED: ACETAMINOPHEN 325 MG TAB PO PRN (15:13)
[2021-02-10] MEDS ORDERED: NSS + 20MEQ KCL 20 MEQ/1,000 ML BAG IV SCH (16:00)
[2021-02-10] MEDS: THIAMINE HCL 100 MG TAB PO SCH (17:02)
[2021-02-10] MEDS: FOLIC ACID 1 MG TAB PO SCH (17:02)
[2021-02-10] MEDS: AZITHROMYCIN 500 MG in DEXTROSE 5% 250 ML IV SCH (17:03)
[2021-02-10] MEDS: ALBUTEROL HFA 8 GM INHALER INH SCH ×2 (17:55→19:33)
[2021-02-10] MEDS: ZINC SULFATE 220 MG CAPSULE PO SCH (18:05)
[2021-02-10] MEDS: CHOLECALCIFEROL 1,000 UNITS 25 MCG TAB PO SCH (18:05)
[2021-02-10] MEDS: ENOXAPARIN 80 MG/0.8 ML SYR SQ SCH (18:07)
[2021-02-10] MEDS: guaiFENesin 600 MG TABCR PO SCH (19:25)
[2021-02-11] MEDS: ENOXAPARIN 80 MG/0.8 ML SYR SQ SCH (05:07)
[2021-02-11] MEDS: LEVOTHYROXINE SODIUM 25 MCG TABLET PO SCH (05:07)
[2021-02-11 06:40] LABS: Hematocrit (blood only) 42.1 % (37-47); Hemoglobin 13.8 g/dL (12.0-16.0); Mean Corpuscular Hemoglobin 29.2 pg (25-34); Mean Corpuscular Hgb Conc 32.8 g/dL (32-36); Mean Corpuscular Volume 89.2 fL (80-100); Mean Platelet Volume 11.3 fL (7.4-10.4); Platelet Count 237 K/uL (130-400); RDW Coefficient of Variation 13.2 % (11.5-14.5); RDW Standard Deviation 43.7 fL (36.4-46.3); Red Blood Count 4.72 M/uL (4.2-5.4); White Blood Count 11.17 K/uL (4.8-10.8)
[2021-02-11 07:04] LABS: Basophils # (auto) 0.01 K/uL (0-0.2); Basophils % (auto) 0.1 %; Echinocytes 1+; Immature Granulocytes # (auto) 0.05 K/uL (0.00-0.02); Immature Granulocytes % (auto) 0.4 %; Lymphocytes # (auto) 0.97 K/uL (1.2-3.4); Lymphocytes % (auto) 8.7 %; Monocytes % (auto) 5.4 %; Neutrophils # (auto) 9.54 K/uL (1.4-6.5); Neutrophils % (auto) 85.4 %
[2021-02-11] MEDS: ALBUTEROL HFA 8 GM INHALER INH SCH ×4 (07:31→19:53)
[2021-02-11 07:42] LABS: Albumin Level 2.7 gm/dl (3.4-5.0); BUN Creatinine Ratio 25.5 (10-20); Calcium 8.9 mg/dl (8.5-10.1); Creatinine Clr Calc Pharmacy 60.7 ml/min; Est GFR (African American) 75.7 ml/min; Est GFR (Non-African American) 65.3 ml/min; Magnesium 2.8 mg/dl (1.8-2.4); Potassium 4.2 mmol/L (3.5-5.1)
[2021-02-11 08:09] LABS: Albumin Globulin Ratio 0.6 (0.9-2); Bilirubin,Total 0.7 mg/dl (0.2-1); Globulin 4.6 gm/dl (2.5-4.0); Total Protein 7.3 gm/dl (6.4-8.2)
[2021-02-11] MEDS: CHOLECALCIFEROL 1,000 UNITS 25 MCG TAB PO SCH (08:16)
[2021-02-11] MEDS: FOLIC ACID 1 MG TAB PO SCH (08:16)
[2021-02-11] MEDS: dexAMETHasone 6 MG in SYRINGE 0 ML IV SCH (08:16)
[2021-02-11] MEDS: THIAMINE HCL 100 MG TAB PO SCH (08:17)
[2021-02-11] MEDS: ZINC SULFATE 220 MG CAPSULE PO SCH (08:17)
[2021-02-11] MEDS: ASPIRIN 81 MG ECTAB PO SCH (08:17)
[2021-02-11] MEDS: guaiFENesin 600 MG TABCR PO SCH ×2 (08:18→20:22)
[2021-02-11] MEDS ORDERED: METOPROLOL TARTRATE 25 MG TAB PO SCH (09:45)
[2021-02-11] MEDS ORDERED: FUROSEMIDE 20 MG in SYRINGE 0 ML IV ONE (10:00)
--- NOTE | 2021-02-11 13:58 | Cardiology Consultation ---
Date of Consultation February 11, 2021 Assessment & Plan (1) Atrial fibrillation: In the past she was felt to have paroxysmal atrial fibrillation. However, this now appears more persistent. She has not been seen in the outpatient setting in nearly a year. Originally she was prescribed Xarelto, but apparently discontinued this that she had trouble getting a renewed prescription. She has some symptoms associated with atrial fibrillation, manifest primarily by exercise intolerance. Whether she needs more aggressive rate control most of the time is unclear, but she does report some higher heart rates with activity and would likely benefit from continued metoprolol. She was started on metoprolol today. She has some elevated rates in the hospital which could be related to her pneumonia and otherwise acute illness. I will continue her current dose of metoprolol increasing the dose every couple of days is necessary to obtain better rate control. I would resume her Xarelto and discontinue her Lovenox. Xarelto 20 mg daily is the appropriate dose in her case. (2) Mitral regurgitation: Mild on last echocardiogram. No need for repeat echocardiogram currently. History of Present Illness Reason for Consultation: Atrial fibrillation Requesting Physician: Hanny Attending Physician: Sahara Gamino MD History of Present Illness The patient is a 65-year-old woman with a history of atrial fibrillation who is admitted for COVID-19 pneumonia. The patient began to have symptoms of fatigue and lethargy over a week ago. She had very mild respiratory symptoms at that time. No significant myalgias. She did not report subjective fevers or chills. Based on the nature of the symptoms she presented to the hospital in was discovered to have evidence of viral pneumonia. She had hypoxia. She had atrial fibrillation with an elevated ventricular rate. The patient states that she is aware of atrial fibrillation on occasion. This manifests itself as a sense of an irregular heartbeat primarily while she is lyi ng down at nighttime. She also has a heart rate monitor which generally review records resting heart rates in the 80s the significant elevations with activity. Occasionally he she has some symptoms associated with activity such as exercise intolerance and dyspnea. She did not report chest pains. No dizziness, lightheadedness or syncope. She believe she has been in atrial fibrillation for approximately 1 year. Allergies Allergy/AdvReac Type Severity Reaction Status Date / Time No Known Drug Allergies Allergy Unknown NKDA Verified 02/10/21 10:54 Home Medications Medication Instructions Recorded Confirmed Type levothyroxine 25 mcg tablet 25 mcg PO QAM 01/14/20 02/10/21 History (Levoxyl) spironolactone 25 mg tablet 75 mg PO QAM 01/14/20 02/10/21 History acetaminophen 500 mg tablet 500 mg PO Q6H PRN 02/10/21 02/10/21 History (Tylenol Extra Strength) aspirin 81 mg tablet,delayed 81 mg PO QAM 02/10/21 02/10/21 History release torsemide 20 mg tablet 10 mg PO QAM 02/10/21 02/10/21 History Patient History Medical History (Updated 02/11/21 @ 13:56 by Vincent Strickland MD) Hypothyroid Surgical History No pertinent past surgical history Social History Smoking Status: Never smoker Second Hand Exposure: No; Hx Alcohol Use: Yes Alcohol type: wine Hx Substance Use: No Preferred Language: Moroccan Communication Ability: Effective Machine Heel Seat Fitter Required: No Beliefs That Will Affect Care: None Current Living Situation: Spouse Feels Safe at Home: Yes Assistive Devices: None Review of Systems Review of Systems: All systems reviewed & are unremarkable except as noted in HPI & below Per HPI no edema. Physical Exam Physical Exam: She is alert and oriented x3. Mood affect appear normal. She answered all questions appropriately. She did appear tired. HEENT: Sclerae are anicteric. Pupils are equal and reactive to light and accommodation. Extraocular movements were intact. Neuro: Cranial nerves intact Lungs: Coughing with deep inspiration. Some fine crackles in some lung field. No upper respiratory congestion. No expiratory wheezing. respiratory effort without use of accessory muscles. There is normal pulmonary excursion. Cardiac: The rhythm was irregular. S1 and S2 were normal. There are no murmurs on examination. The PMI was not markedly displaced on palpation. Extremities: Patient has bilateral radial pulses that are equal in intensity. There is no evidence cyanosis or clubbing. There was no evidence of significant peripheral edema bilaterally. Skin: There are no rashes noted on examination today. Results & Data ([facility]) Vital Signs (Past 12 Hours) Vital Signs Temp Pulse Resp BP Pulse Ox 02/11/21 12:00 36.5 C 100 H 20 119/81 90 02/11/21 11:27 84 18 96 02/11/21 08:28 90 02/11/21 08:25 36.3 C L 122 H 22 119/81 84 L 02/11/21 07:32 108 H 16 93 02/11/21 05:05 36.7 C 92 H 12 130/85 90 Laboratory Results Abnormal Lab Results 02/11/21 02/11/21 05:54 05:54 WBC 11.17 H RBC 4.72 Hgb 13.8 Hct 42.1 MCV 89.2 MCH 29.2 MCHC 32.8 RDW Std Deviation 43.7 RDW Coeff of Nadege 13.2 Plt Count 237 MPV 11.3 H Immature Gran % (Auto) 0.4 Neut % (Auto) 85.4 Lymph % (Auto) 8.7 [place] % (Auto) 5.4 Eos % (Auto) 0.0 Baso % (Auto) 0.1 Neut # (Auto) 9.54 H Lymph # (Auto) 0.97 L [place] # (Auto) 0.60 H Eos # (Auto) 0.00 Baso # (Auto) 0.01 Immature Gran # (Auto) 0.05 H Echinocytes 1+ Sodium 140 Potassium 4.2 D Chloride 108 H Carbon Dioxide 25 Anion Gap 7.0 BUN 23 H Creatinine 0.91 D Est Cr Clr Drug Dosing 60.7 Est GFR ( Amer) 75.7 Est GFR (Non-Af Amer) 65.3 BUN/Creatinine Ratio 25.5 H Glucose 123 H Calcium 8.9 Magnesium 2.8 H Total Bilirubin 0.7 D AST 75 H ALT 68 Alkaline Phosphatase 69 Total Protein 7.3 Albumin 2.7 L Globulin 4.6 H Albumin/Globulin Ratio 0.6 L Diagnostic Findings Echocardiogram obtained 04/12/2020: Normal LV systolic function. Mild LVH. Mild mitral regurgitation. Chest CTA demonstrated evidence of viral pneumonia. PG Care Time/CCT Total # of Minutes Spent Total Time Spent with Patient: Total time spent is greater than 50% in coordination of care (as documented) at patient's floor/unit and/or counseling patient: Coding Level of Care Code 11325 Initial Inpt Care Lvl 3 Diagnoses Atrial fibrillation I48.91 Mitral regurgitation I34.0
[2021-02-11] MEDS: AZITHROMYCIN 500 MG in DEXTROSE 5% 250 ML IV SCH (15:36)
--- NOTE | 2021-02-11 17:46 | Electrocardiogram Report ---
Test Reason : Blood Pressure : / mmHG Vent. Rate : 100 BPM Atrial Rate : 416 BPM P-R Int : 000 ms QRS Dur : 084 ms QT Int : 338 ms P-R-T Axes : 000 000 -09 degrees QTc Int : 436 ms Atrial fibrillation Abnormal ECG When compared with ECG of 10-FEB-2021 09:07, Nonspecific T wave abnormality no longer evident in Lateral leads Confirmed by Dylan Strickland ([id number]) on 02/11/2021 5:46:29 PM Referred By: REFERRED SELF Confirmed By:Elian Strickland
[2021-02-11] MEDS: HYDROcodone/HOMATROPINE SYRUP 5MG/1.5MG 5ML UDP PO PRN (17:49)
[2021-02-11] MEDS: RIVAROXABAN 20 MG TAB PO SCH (17:50)
[2021-02-11] MEDS ORDERED: SODIUM CHLORIDE 0.65% NA SOLN 45 ML (OCEAN) PRN (19:26)
--- NOTE | 2021-02-11 19:28 | Hospitalist Progress Note ---
Date of Service February 11, 2021 Assessment & Plan (1) Atrial fibrillation with RVR: Plan: A. fib with RVR/paroxysmal atrial fibrillation-continues with rapid rates Suspect secondary to physiologic stress of COVID-19 pneumonia and hypoxia, along with hypokalemia and dehydration. -Recent echocardiogram 1 year ago with preserved EF -Start metoprolol and increase to 25 mg p.o. twice daily -Restart Xarelto and discontinue Lovenox Appreciate cardiology consultation as needed Optimize potassium to 4 and magnesium to 2 with oral and IV supplementation Recheck laboratories in a.m. Continue telemetry monitoring (2) Pneumonia due to COVID-19 virus: Plan: Pneumonia/bronchitis due to COVID-19/with hypoxia- Now increased requirement of 6 L nasal cannula Discussed prone positioning-she will try this Add incentive spirometry and flutter valve Continue dexamethasone 6 mg IV daily Albuterol HFA 2 puffs 4 times daily and every 2 hours as needed DuoNebs every 2 hours as needed Guaifenesin extended release 1200 mg p.o. every 12 hours Hycodan syrup 5 mils p.o. every 4 hours as needed severe cough Continue azithromycin 500 mg IV daily Nasal cannula oxygen, titrate to keep pulse ox around 95% Monitor closely for secondary bacterial pneumonia' (3) Hypoxia: Plan: Acute respiratory failure with hypoxia Also may be some volume overload component with acute diastolic CHF from rapid atrial fibrillation Give IV Lasix x1 Reassess tomorrow (4) Edema: Plan: Hold on torsemide and spironolactone due to relatively dehydrated state, but will likely restart tomorrow, giving IV Lasix today (5) Acute kidney injury: Plan: Creatinine 1.32 upon admission, creatinine now normal Received 1 L of IV fluids Now giving IV Lasix (6) Transaminitis: Plan: AST 105 on admission. Improved today Likely secondary to Covid pneumonia (7) Hiatal hernia: Plan: Hiatal hernia/question 3.4 cm stomach mass versus flattened stomach on CT- Recommendation for outpatient gastroenterology assessment once Covid 19 infection resolved Add on IV Pepcid for mild nausea (8) Hypokalemia: Plan: Add on potassium chloride as needed Follow BMP (9) Ear fullness: Plan: Add on nasal saline spray (10) Nausea: Plan: Secondary to possible gastritis, does have hiatal hernia Also could be from Covid Add on Pepcid Zofran as needed (11) DVT prophylaxis: Plan: Add Xarelto Disposition-continued stay Admission and Anticipated Discharge Date Admission Date: February 10, 2021 Subjective Patient reports mild cough, some shortness of breath. Still tachycardic in atrial fibrillation on monitor. Is lying flat on her back when I came in. Discussed prone position. No diarrhea but has some nausea that started today. She is also feeling fullness in her ears. I discussed her case with cardiology. Review of Systems Review of Systems: All systems reviewed & are unremarkable except as noted in HPI & below Physical Exam Constitutional: WD/WN, vitals as above Eyes: + anicteric sclerae Neck: trachea midline, no thyromegaly Respiratory: normal respiratory effort; no cough Auscultation: + crackles (Bilateral midlung zones and lower lung zones); no rhonchi and no wheezes Cardiovascular: Rate/Rhythm: + tachycardic and + irregularly irregular Chest (Breasts): Chest: normal inspection of chest Gastrointestinal (Abdomen): normal bowel sounds, soft, nontender, no hepatosplenomegaly Musculoskeletal: Extremities: extremities normal to inspection; no cyanosis and no clubbing Skin: no rashes, warm and dry Neurologic: moves all extremities and awake; no focal motor deficits Psychiatric: A+Ox3, euthymic affect Lymphatic: no lymphedema Results & Data Results & Data ([facility]) Vital Signs (Past 12 Hours) Vital Signs Temp Pulse Pulse Resp BP Pulse Ox 02/11/21 16:00 106 H 02/11/21 15:53 107 H 18 93 02/11/21 15:32 36.3 C L 109 H 22 127/83 91 02/11/21 12:00 36.5 C 100 H 20 119/81 90 02/11/21 11:27 84 18 96 02/11/21 08:28 90 02/11/21 08:25 36.3 C L 122 H 22 119/81 84 L 02/11/21 07:32 108 H 16 93 Laboratory Results 02/12/21 02/12/21 Range/Units 05:40 05:40 WBC 14.72 H (4.8-10.8) K/uL RBC 4.45 (4.2-5.4) M/uL Hgb 12.9 (12.0-16.0) g/dL Hct 40.0 (37-47) % MCV 89.9 (80-100) fL MCH 29.0 (25-34) pg MCHC 32.3 (32-36) g/dL RDW Std Deviation 43.5 (36.4-46.3) fL RDW Coeff of Nadege 13.2 (11.5-14.5) % Plt Count 293 (130-400) K/uL MPV 10.8 H (7.4-10.4) fL Immature Gran % (Auto) 0.4 % Neut % (Auto) 88.3 % Lymph % (Auto) 6.2 % [place] % (Auto) 4.9 % Eos % (Auto) 0.1 % Baso % (Auto) 0.1 % Neut # (Auto) 13.00 H (1.4-6.5) K/uL Lymph # (Auto) 0.91 L (1.2-3.4) K/uL [place] # (Auto) 0.72 H (0.11-0.59) K/uL Eos # (Auto) 0.01 (0-0.5) K/uL Baso # (Auto) 0.02 (0-0.2) K/uL Immature Gran # (Auto) 0.06 H (0.00-0.02) K/uL Sodium 140 (136-145) mmol/L Potassium 4.3 (3.5-5.1) mmol/L Chloride 108 H (98-107) mmol/L Carbon Dioxide 27 (21-32) mmol/L Anion Gap 5.0 (3-11) BUN 26 H (7-18) mg/dl Creatinine 0.92 (0.6-1.2) mg/dl Est Cr Clr Drug Dosing 61.0 ml/min Est GFR ( Amer) 74.7 ml/min Est GFR (Non-Af Amer) 64.4 ml/min BUN/Creatinine Ratio 27.9 H (10-20) Glucose 111 H (70-99) mg/dl Calcium 8.7 (8.5-10.1) mg/dl Magnesium 2.8 H (1.8-2.4) mg/dl Total Bilirubin 0.7 (0.2-1) mg/dl AST 57 H (15-37) U/L ALT 74 (12-78) U/L Alkaline Phosphatase 57 (45-117) U/L Total Protein 6.7 (6.4-8.2) gm/dl Albumin 2.6 L (3.4-5.0) gm/dl Globulin 4.1 H (2.5-4.0) gm/dl Albumin/Globulin Ratio 0.6 L (0.9-2) TSH 0.890 (0.300-4.500) uIu/ml PG Care Time/CCT Total # of Minutes Spent Total Time Spent with Patient: Total time spent is greater than 50% in coordination of care (as documented) at patient's floor/unit and/or counseling patient: Coding Level of Care Code 50545 Subseq Hosp Care Lvl 3 Diagnoses Atrial fibrillation with RVR I48.91 Pneumonia due to COVID-19 virus U07.1; J12.82 Hypoxia R09.02 Edema R60.9 Acute kidney injury N17.9 Transaminitis R74.01 Hiatal hernia K44.9 Hypokalemia E87.6 Ear fullness H93.8X9 Nausea R11.0 DVT prophylaxis Z29.9
[2021-02-11] MEDS: METOPROLOL TARTRATE 25 MG TAB PO SCH (20:22)
[2021-02-11] MEDS: FAMOTIDINE 20 MG in SYRINGE 3 ML IV SCH (22:54)
[2021-02-12 05:57] LABS: Hemoglobin 12.9 g/dL (12.0-16.0); Mean Corpuscular Hgb Conc 32.3 g/dL (32-36); Mean Corpuscular Volume 89.9 fL (80-100); Mean Platelet Volume 10.8 fL (7.4-10.4); Platelet Count 293 K/uL (130-400); RDW Coefficient of Variation 13.2 % (11.5-14.5); RDW Standard Deviation 43.5 fL (36.4-46.3); Red Blood Count 4.45 M/uL (4.2-5.4); White Blood Count 14.72 K/uL (4.8-10.8)
[2021-02-12 06:17] LABS: Basophils # (auto) 0.02 K/uL (0-0.2); Basophils % (auto) 0.1 %; Eosinophils # (auto) 0.01 K/uL (0-0.5); Eosinophils % (auto) 0.1 %; Immature Granulocytes # (auto) 0.06 K/uL (0.00-0.02); Immature Granulocytes % (auto) 0.4 %; Lymphocytes # (auto) 0.91 K/uL (1.2-3.4); Lymphocytes % (auto) 6.2 %; Monocytes # (auto) 0.72 K/uL (0.11-0.59); Monocytes % (auto) 4.9 %; Neutrophils % (auto) 88.3 %
[2021-02-12] MEDS: LEVOTHYROXINE SODIUM 25 MCG TABLET PO SCH (06:34)
[2021-02-12] MEDS: HYDROcodone/HOMATROPINE SYRUP 5MG/1.5MG 5ML UDP PO PRN ×3 (06:36→20:11)
[2021-02-12 06:49] LABS: Albumin Level 2.6 gm/dl (3.4-5.0); BUN Creatinine Ratio 27.9 (10-20); Calcium 8.7 mg/dl (8.5-10.1); Est GFR (African American) 74.7 ml/min; Est GFR (Non-African American) 64.4 ml/min; Magnesium 2.8 mg/dl (1.8-2.4); Potassium 4.3 mmol/L (3.5-5.1)
[2021-02-12 07:00] LABS: Albumin Globulin Ratio 0.6 (0.9-2); Bilirubin,Total 0.7 mg/dl (0.2-1); Globulin 4.1 gm/dl (2.5-4.0); Thyroid Stimulating Hormone 0.89 uIu/ml (0.300-4.500); Total Protein 6.7 gm/dl (6.4-8.2)
[2021-02-12] MEDS: ALBUTEROL HFA 8 GM INHALER INH SCH ×4 (07:52→19:29)
[2021-02-12] MEDS: FAMOTIDINE 20 MG in SYRINGE 3 ML IV SCH ×2 (08:14→20:11)
[2021-02-12] MEDS: FOLIC ACID 1 MG TAB PO SCH (08:15)
[2021-02-12] MEDS: THIAMINE HCL 100 MG TAB PO SCH (08:15)
[2021-02-12] MEDS: dexAMETHasone 6 MG in SYRINGE 0 ML IV SCH (08:15)
[2021-02-12] MEDS: CHOLECALCIFEROL 1,000 UNITS 25 MCG TAB PO SCH (08:16)
[2021-02-12] MEDS: ASPIRIN 81 MG ECTAB PO SCH (08:16)
[2021-02-12] MEDS: METOPROLOL TARTRATE 25 MG TAB PO SCH ×2 (08:16→19:16)
[2021-02-12] MEDS: guaiFENesin 600 MG TABCR PO SCH ×2 (08:17→19:16)
[2021-02-12] MEDS: ZINC SULFATE 220 MG CAPSULE PO SCH (08:18)
--- NOTE | 2021-02-12 11:59 | Electrocardiogram Report ---
Test Reason : Blood Pressure : / mmHG Vent. Rate : 090 BPM Atrial Rate : 075 BPM P-R Int : 000 ms QRS Dur : 092 ms QT Int : 370 ms P-R-T Axes : 000 008 006 degrees QTc Int : 452 ms Atrial fibrillation Abnormal ECG When compared with ECG of 11-FEB-2021 05:13, No significant change was found Confirmed by Mac Garnett ([id number]) on 02/12/2021 11:59:30 AM Referred By: REFERRED SELF Confirmed By:Mac Garnett
--- NOTE | 2021-02-12 16:46 | Hospitalist Progress Note ---
Date of Service February 12, 2021 Assessment & Plan (1) Atrial fibrillation with RVR: Plan: A. joe with RVR/paroxysmal atrial fibrillation-rates are finally now controlled with adding metoprolol She has a history of atrial fibrillation was seen by cardiology and 2020 and was started on Xarelto at that time, but she reports she ran out and never had it refilled. Suspect rapid atrial fibrillation is secondary to physiologic stress of COVID-19 pneumonia and hypoxia, along with hypokalemia and dehydration. -Recent echocardiogram 1 year ago with preserved EF -Continue metoprolol 25 mg p.o. twice daily and titrate upwards every 2 days as needed for improved rate control -Restarted Xarelto 20 mg daily and should continue this indefinitely Appreciate cardiology consultation Optimize potassium to 4 and magnesium to 2 as needed Follow BMP, magnesium in the morning Continue telemetry monitoring (2) Pneumonia due to COVID-19 virus: Plan: Pneumonia/bronchitis due to COVID-19/with hypoxia-with persistent cough, some wheezing Chest CT with bilateral infiltrates consistent with viral pneumonia, no lobar consolidation No fevers Continues with oxygen requirement but weaned down to 5 L nasal cannula today She is proning at night-encourage proning during the day time as well intermittently Continue incentive spirometry and flutter valve Continue dexamethasone 6 mg IV daily x10-day course Albuterol HFA 2 puffs 4 times daily and every 2 hours as needed DuoNebs every 2 hours as needed Guaifenesin extended release 1200 mg p.o. every 12 hours Continue Hycodan syrup-will make this a scheduled dose as she forgets to ask for it Continue azithromycin but change to 50 mg p.o. once daily-last dose will be 02/14 Continue supplemental O2 and attempt to wean off as tolerated keep pulse ox greater than 92% (3) Hypoxia: Plan: Acute respiratory failure with hypoxia Also may be some volume overload component with acute diastolic CHF from rapid atrial fibrillation Received IV Lasix x1 on 02/11 I's and O's not accurately recorded Restarting home torsemide and spironolactone (4) Edema: Plan: Restart home torsemide and spironolactone (5) Acute kidney injury: Plan: Creatinine 1.32 upon admission, creatinine now normal (6) Transaminitis: Plan: AST 105 on admission. Now almost back to normal Likely secondary to Covid pneumonia (7) Hiatal hernia: Plan: Hiatal hernia/question 3.4 cm stomach mass versus flattened stomach on CT- Recommendation for outpatient gastroenterology assessment once Covid 19 infection resolved Continue IV Pepcid for mild nausea (8) Hypokalemia: Plan: Resolved Follow BMP (9) Ear fullness: Plan: Continue nasal saline spray (10) Nausea: Plan: Secondary to possible gastritis, does have hiatal hernia-still occurring but is mild Is tolerating p.o. Also could be from Covid Continue Pepcid Zofran as needed (11) Hypothyroid: Plan: TSH here is normal Continue home levothyroxine (12) DVT prophylaxis: Plan: Xarelto Disposition-continued stay on telemetry Plan: Apparently there is concern for alcohol withdrawal as the patient drinks wine at home. Continue AWSS scale for 1 more day but she has not required any lorazepam so far This can likely be discontinued tomorrow Admission and Anticipated Discharge Date Admission Date: February 10, 2021 Subjective Patient still has a bad cough and feels she is wheezing at times. She does report that her colleagues at work always tell her she is wheezing even before she had Covid. She does have a lot of years of secondhand smoke from her . She is still having a little bit of nausea but is able to eat and drink. Moving her bowels and making urine. Telemetry with atrial fibrillation with rates in the 90s to 100s. Review of Systems Review of Systems: All systems reviewed & are unremarkable except as noted in HPI & below Physical Exam Constitutional: WD/WN, vitals as above Eyes: + anicteric sclerae Neck: trachea midline, no thyromegaly Respiratory: normal respiratory effort and + cough (Significant cough with any deep breath) Auscultation: + crackles (Bilateral midlung zones and lower lung zones); no rhonchi and no wheezes Cardiovascular: Rate/Rhythm: + tachycardic and + irregularly irregular Chest (Breasts): Chest: normal inspection of chest Gastrointestinal (Abdomen): normal bowel sounds, soft, nontender, no hepatospl enomegaly Musculoskeletal: Extremities: extremities normal to inspection; no cyanosis and no clubbing Skin: no rashes, warm and dry Neurologic: moves all extremities and awake; no focal motor deficits Psychiatric: A+Ox3, euthymic affect Lymphatic: no lymphedema Results & Data Results & Data ([facility]) Vital Signs (Past 12 Hours) Vital Signs Temp Pulse Resp BP Pulse Ox 02/12/21 15:24 96 H 20 91 02/12/21 12:16 36.5 C 92 H 19 109/69 97 02/12/21 11:07 88 18 96 02/12/21 08:10 36.4 C L 113 H 22 112/72 90 02/12/21 07:53 91 H 18 90 Laboratory Results 02/12/21 02/12/21 Range/Units 05:40 05:40 WBC 14.72 H (4.8-10.8) K/uL RBC 4.45 (4.2-5.4) M/uL Hgb 12.9 (12.0-16.0) g/dL Hct 40.0 (37-47) % MCV 89.9 (80-100) fL MCH 29.0 (25-34) pg MCHC 32.3 (32-36) g/dL RDW Std Deviation 43.5 (36.4-46.3) fL RDW Coeff of Nadege 13.2 (11.5-14.5) % Plt Count 293 (130-400) K/uL MPV 10.8 H (7.4-10.4) fL Immature Gran % (Auto) 0.4 % Neut % (Auto) 88.3 % Lymph % (Auto) 6.2 % [place] % (Auto) 4.9 % Eos % (Auto) 0.1 % Baso % (Auto) 0.1 % Neut # (Auto) 13.00 H (1.4-6.5) K/uL Lymph # (Auto) 0.91 L (1.2-3.4) K/uL [place] # (Auto) 0.72 H (0.11-0.59) K/uL Eos # (Auto) 0.01 (0-0.5) K/uL Baso # (Auto) 0.02 (0-0.2) K/uL Immature Gran # (Auto) 0.06 H (0.00-0.02) K/uL Sodium 140 (136-145) mmol/L Potassium 4.3 (3.5-5.1) mmol/L Chloride 108 H (98-107) mmol/L Carbon Dioxide 27 (21-32) mmol/L Anion Gap 5.0 (3-11) BUN 26 H (7-18) mg/dl Creatinine 0.92 (0.6-1.2) mg/dl Est Cr Clr Drug Dosing 61.0 ml/min Est GFR ( Amer) 74.7 ml/min Est GFR (Non-Af Amer) 64.4 ml/min BUN/Creatinine Ratio 27.9 H (10-20) Glucose 111 H (70-99) mg/dl Calcium 8.7 (8.5-10.1) mg/dl Magnesium 2.8 H (1.8-2.4) mg/dl Total Bilirubin 0.7 (0.2-1) mg/dl AST 57 H (15-37) U/L ALT 74 (12-78) U/L Alkaline Phosphatase 57 (45-117) U/L Total Protein 6.7 (6.4-8.2) gm/dl Albumin 2.6 L (3.4-5.0) gm/dl Globulin 4.1 H (2.5-4.0) gm/dl Albumin/Globulin Ratio 0.6 L (0.9-2) TSH 0.890 (0.300-4.500) uIu/ml PG Care Time/CCT Total # of Minutes Spent Total Time Spent with Patient: Total time spent is greater than 50% in coordination of care (as documented) at patient's floor/unit and/or counseling patient: Coding Level of Care Code 67581 Subseq Hosp Care Lvl 3 Diagnoses Atrial fibrillation with RVR I48.91 Pneumonia due to COVID-19 virus U07.1; J12.82 Hypoxia R09.02 Edema R60.9 Acute kidney injury N17.9 Transaminitis R74.01 Hiatal hernia K44.9 Hypokalemia E87.6 Ear fullness H93.8X9 Nausea R11.0 DVT prophylaxis Z29.9 Hypothyroid E03.9
[2021-02-12] MEDS: AZITHROMYCIN 500 MG in DEXTROSE 5% 250 ML IV SCH (17:06)
[2021-02-12] MEDS: RIVAROXABAN 20 MG TAB PO SCH (17:07)
[2021-02-13] MEDS: HYDROcodone/HOMATROPINE SYRUP 5MG/1.5MG 5ML UDP PO SCH ×6 (01:07→20:34)
[2021-02-13 06:01] LABS: Basophils # (auto) 0.02 K/uL (0-0.2); Basophils % (auto) 0.2 %; Eosinophils # (auto) 0.04 K/uL (0-0.5); Eosinophils % (auto) 0.4 %; Hematocrit (blood only) 38.3 % (37-47); Hemoglobin 12.4 g/dL (12.0-16.0); Immature Granulocytes # (auto) 0.06 K/uL (0.00-0.02); Immature Granulocytes % (auto) 0.7 %; Lymphocytes # (auto) 0.76 K/uL (1.2-3.4); Lymphocytes % (auto) 8.4 %; Mean Corpuscular Hgb Conc 32.4 g/dL (32-36); Mean Corpuscular Volume 89.5 fL (80-100); Mean Platelet Volume 10.3 fL (7.4-10.4); Monocytes # (auto) 0.52 K/uL (0.11-0.59); Monocytes % (auto) 5.7 %; Neutrophils % (auto) 84.6 %; Platelet Count 315 K/uL (130-400); RDW Coefficient of Variation 13.4 % (11.5-14.5); RDW Standard Deviation 44.1 fL (36.4-46.3); Red Blood Count 4.28 M/uL (4.2-5.4)
[2021-02-13] MEDS: LEVOTHYROXINE SODIUM 25 MCG TABLET PO SCH (06:27)
[2021-02-13 06:29] LABS: Albumin Level 2.4 gm/dl (3.4-5.0); BUN Creatinine Ratio 24.1 (10-20); Calcium 8.7 mg/dl (8.5-10.1); Creatinine Clr Calc Pharmacy 76.8 ml/min; Est GFR (African American) 98.8 ml/min; Est GFR (Non-African American) 85.2 ml/min; Magnesium 2.2 mg/dl (1.8-2.4); Potassium 3.9 mmol/L (3.5-5.1)
[2021-02-13 06:32] LABS: Albumin Globulin Ratio 0.6 (0.9-2); Bilirubin,Total 0.4 mg/dl (0.2-1); Globulin 3.8 gm/dl (2.5-4.0); Total Protein 6.2 gm/dl (6.4-8.2)
[2021-02-13] MEDS: ALBUTEROL HFA 8 GM INHALER INH SCH ×4 (07:27→19:28)
[2021-02-13] MEDS: AZITHROMYCIN 250 MG TAB PO SCH (08:18)
[2021-02-13] MEDS: ZINC SULFATE 220 MG CAPSULE PO SCH (08:19)
[2021-02-13] MEDS: ASPIRIN 81 MG ECTAB PO SCH (08:19)
[2021-02-13] MEDS: METOPROLOL TARTRATE 25 MG TAB PO SCH ×2 (08:19→20:31)
[2021-02-13] MEDS: guaiFENesin 600 MG TABCR PO SCH ×2 (08:19→20:33)
[2021-02-13] MEDS: THIAMINE HCL 100 MG TAB PO SCH (08:19)
[2021-02-13] MEDS: dexAMETHasone 6 MG in SYRINGE 0 ML IV SCH (08:20)
[2021-02-13] MEDS: SPIRONOLACTONE 25 MG TAB PO SCH (08:20)
[2021-02-13] MEDS: CHOLECALCIFEROL 1,000 UNITS 25 MCG TAB PO SCH (08:20)
[2021-02-13] MEDS: FOLIC ACID 1 MG TAB PO SCH (08:20)
[2021-02-13] MEDS: TORSEMIDE 10 MG TAB PO SCH (08:21)
[2021-02-13] MEDS: FAMOTIDINE 20 MG in SYRINGE 3 ML IV SCH ×2 (08:26→20:43)
--- NOTE | 2021-02-13 11:02 | Hospitalist Progress Note ---
Date of Service February 13, 2021 Assessment & Plan (1) Atrial fibrillation with RVR: Plan: Kiera diaz with RVR/paroxysmal atrial fibrillation She has a history of atrial fibrillation was seen by cardiology and 2020 and was started on Xarelto at that time, but she reports she ran out and never had it refilled. Suspect rapid atrial fibrillation is secondary to physiologic stress of COVID-19 pneumonia and hypoxia, along with hypokalemia and dehydration. Rates are still uncontrolled today -Recent echocardiogram 1 year ago with preserved EF -Continue metoprolol and titrate up again today to 50 mg p.o. twice daily for improved rate control -Restarted Xarelto 20 mg daily and should continue this indefinitely Appreciate cardiology consultation Optimize potassium to 4 and magnesium to 2 as needed Follow BMP, magnesium in the morning Continue telemetry monitoring (2) Pneumonia due to COVID-19 virus: Plan: Pneumonia/bronchitis due to COVID-19/with hypoxia-with persistent cough, some wheezing Chest CT with bilateral infiltrates consistent with viral pneumonia, no lobar consolidation No fevers Continues with oxygen requirement and slightly weaned down to 4.5-5 L nasal cannula today She is proning at night-encourage proning during the day time as well intermittently Continue incentive spirometry and flutter valve Continue dexamethasone 6 mg IV daily x10-day course Albuterol HFA 2 puffs 4 times daily and every 2 hours as needed DuoNebs every 2 hours as needed Guaifenesin extended release 1200 mg p.o. every 12 hours Continue Hycodan syrup-scheduled dose as she forgets to ask for it and has significant coughing episodes Continue azithromycin 250 mg p.o. once daily x5-day course-last dose will be 02/14 Continue supplemental O2 and attempt to wean off as tolerated keep pulse ox greater than 92% (3) Hypoxia: Plan: Acute respiratory failure with hypoxia Also may be some volume overload component with acute diastolic CHF from rapid atrial fibrillation Received IV Lasix x1 on 02/11 I's and O's not accurately recorded Restarted home torsemide and spironolactone (4) Edema: Plan: Continue home torsemide and spironolactone (5) Acute kidney injury: Plan: Creatinine 1.32 upon admission, creatinine now normal (6) Transaminitis: Plan: AST 105 on admission. Now almost back to normal with AST and ALT in the 70s Likely secondary to Covid pneumonia (7) Hiatal hernia: Plan: Hiatal hernia/question 3.4 cm stomach mass versus flattened stomach on CT- Recommendation for outpatient gastroenterology assessment once Covid 19 infection resolved Continue IV Pepcid for mild nausea (8) Hypokalemia: Plan: Resolved Follow BMP (9) Ear fullness: Plan: Continue nasal saline spray Add on Flonase nasal spray (10) Nausea: Plan: Secondary to possible gastritis, does have hiatal hernia-still occurring but is mild Is tolerating p.o. Also could be from Covid Continue Pepcid Zofran as needed (11) Hypothyroid: Plan: TSH here is normal Continue home levothyroxine (12) DVT prophylaxis: Plan: Xarelto Disposition-continued stay on telemetry Plan: Apparently there is concern for alcohol withdrawal as the patient drinks wine at home. Continue AWSS scale for 1 more day but she has not required any lorazepam so far This can likely be discontinued tomorrow Admission and Anticipated Discharge Date Admission Date: February 10, 2021 Subjective Patient reports still coughing, not short of breath. Ears still feel full. Remains on 4.5 L nasal cannula. Telemetry with atrial fibrillation with rates in the 80s to 170s at times. She is constipated and has not moved her bowels in many days. She was able to lie prone again last night. Review of Systems Review of Systems: All systems reviewed & are unremarkable except as noted in HPI & below Physical Exam Constitutional: WD/WN, vitals as above Eyes: + anicteric sclerae Neck: trachea midline, no thyromegaly Respiratory: normal respiratory effort and + cough (Significant cough with any deep breath) Auscultation: + crackles (Bilateral midlung zones and lower lung zones); no rhonchi and no wheezes Cardiovascular: Rate/Rhythm: + tachycardic and + irregularly irregular Chest (Breasts): Chest: normal inspection of chest Gastrointestinal (Abdomen): normal bowel sounds, soft, nontender, no hepatosplenomegaly Musculoskeletal: Extremities: extremities normal to inspection; no cyanosis and no clubbing Skin: no rashes, warm and dry Neurologic: moves all extremities and awake; no focal motor deficits Psychiatric: A+Ox3, euthymic affect Lymphatic: no lymphedema Results & Data Results & Data ([facility]) Vital Signs (Past 12 Hours) Vital Signs Temp Pulse Pulse Resp BP Pulse Ox 02/13/21 08:12 36.5 C 106 H 20 111/73 92 02/13/21 07:45 74 02/13/21 07:29 93 H 22 93 02/13/21 05:00 36.5 C 92 H 19 116/78 93 02/13/21 00:11 36.7 C 86 18 96/70 L 94 Laboratory Results 02/13/21 02/13/21 Range/Units 05:17 05:17 WBC 9.10 (4.8-10.8) K/uL RBC 4.28 (4.2-5.4) M/uL Hgb 12.4 (12.0-16.0) g/dL Hct 38.3 (37-47) % MCV 89.5 (80-100) fL MCH 29.0 (25-34) pg MCHC 32.4 (32-36) g/dL RDW Std Deviation 44.1 (36.4-46.3) fL RDW Coeff of Nadege 13.4 (11.5-14.5) % Plt Count 315 (130-400) K/uL MPV 10.3 (7.4-10.4) fL Immature Gran % (Auto) 0.7 % Neut % (Auto) 84.6 % Lymph % (Auto) 8.4 % [place] % (Auto) 5.7 % Eos % (Auto) 0.4 % Baso % (Auto) 0.2 % Neut # (Auto) 7.70 H (1.4-6.5) K/uL Lymph # (Auto) 0.76 L (1.2-3.4) K/uL [place] # (Auto) 0.52 (0.11-0.59) K/uL Eos # (Auto) 0.04 (0-0.5) K/uL Baso # (Auto) 0.02 (0-0.2) K/uL Immature Gran # (Auto) 0.06 H (0.00-0.02) K/uL Sodium 139 (136-145) mmol/L Potassium 3.9 (3.5-5.1) mmol/L Chloride 107 (98-107) mmol/L Carbon Dioxide 27 (21-32) mmol/L Anion Gap 5.0 (3-11) BUN 18 (7-18) mg/dl Creatinine 0.73 (0.6-1.2) mg/dl Est Cr Clr Drug Dosing 76.8 ml/min Est GFR ( Amer) 98.8 ml/min Est GFR (Non-Af Amer) 85.2 ml/min BUN/Creatinine Ratio 24.1 H (10-20) Glucose 98 (70-99) mg/dl Calcium 8.7 (8.5-10.1) mg/dl Magnesium 2.2 (1.8-2.4) mg/dl Total Bilirubin 0.4 (0.2-1) mg/dl AST 55 H (15-37) U/L ALT 79 H (12-78) U/L Alkaline Phosphatase 53 (45-117) U/L Total Protein 6.2 L (6.4-8.2) gm/dl Albumin 2.4 L (3.4-5.0) gm/dl Globulin 3.8 (2.5-4.0) gm/dl Albumin/Globulin Ratio 0.6 L (0.9-2) PG Care Time/CCT Total # of Minutes Spent Total Time Spent with Patient: Total time spent is greater than 50% in coordination of care (as documented) at patient's floor/unit and/or counseling patient: Coding Level of Care Code 36596 Subseq Hosp Care Lvl 3 Diagnoses Atrial fibrillation with RVR I48.91 Pneumonia due to COVID-19 virus U07.1; J12.82 Hypoxia R09.02 Edema R60.9 Acute kidney injury N17.9 Transaminitis R74.01 Hiatal hernia K44.9 Hypokalemia E87.6 Ear fullness H93.8X9 Nausea R11.0 Hypothyroid E03.9 DVT prophylaxis Z29.9
[2021-02-13] MEDS: DOCUSATE SODIUM/SENNA 50/8.6MG TAB PO SCH (16:57)
[2021-02-13] MEDS: RIVAROXABAN 20 MG TAB PO SCH (16:58)
[2021-02-14] MEDS: HYDROcodone/HOMATROPINE SYRUP 5MG/1.5MG 5ML UDP PO SCH ×7 (00:08→23:25)
[2021-02-14] MEDS: LEVOTHYROXINE SODIUM 25 MCG TABLET PO SCH (06:01)
[2021-02-14] MEDS: ALBUTEROL HFA 8 GM INHALER INH SCH ×2 (07:39→11:12)
[2021-02-14] MEDS: THIAMINE HCL 100 MG TAB PO SCH (08:06)
[2021-02-14] MEDS: SPIRONOLACTONE 25 MG TAB PO SCH (08:06)
[2021-02-14] MEDS: AZITHROMYCIN 250 MG TAB PO SCH (08:06)
[2021-02-14] MEDS: FOLIC ACID 1 MG TAB PO SCH (08:07)
[2021-02-14] MEDS: METOPROLOL TARTRATE 50 MG TAB PO SCH ×2 (08:07→20:18)
[2021-02-14] MEDS: guaiFENesin 600 MG TABCR PO SCH ×2 (08:07→20:17)
[2021-02-14] MEDS: FLUTICASONE PROPIONATE NA SPR 16 GM BTL SCH (08:07)
[2021-02-14] MEDS: FAMOTIDINE 20 MG in SYRINGE 3 ML IV SCH ×2 (08:08→20:18)
[2021-02-14] MEDS: dexAMETHasone 6 MG in SYRINGE 0 ML IV SCH (08:08)
[2021-02-14] MEDS: DOCUSATE SODIUM/SENNA 50/8.6MG TAB PO SCH (08:09)
[2021-02-14] MEDS: CHOLECALCIFEROL 1,000 UNITS 25 MCG TAB PO SCH (08:09)
[2021-02-14] MEDS: ASPIRIN 81 MG ECTAB PO SCH (08:10)
[2021-02-14] MEDS: TORSEMIDE 10 MG TAB PO SCH (08:10)
[2021-02-14] MEDS: ZINC SULFATE 220 MG CAPSULE PO SCH (08:10)
--- NOTE | 2021-02-14 09:55 | Hospitalist Progress Note ---
Date of Service February 14, 2021 Assessment & Plan (1) Atrial fibrillation with RVR: Plan: Kiera diaz with RVR/paroxysmal atrial fibrillation She has a history of atrial fibrillation was seen by cardiology and 2020 and was started on Xarelto at that time, but she reports she ran out and never had it refilled. Suspect rapid atrial fibrillation is secondary to physiologic stress of COVID-19 pneumonia and hypoxia, along with hypokalemia and dehydration. Rates are 80-100's today, go up with coughing, will continue Lopressor 50mg BID might consider increasing to 75mg BID but want to see how rates are doing when she is recovered from COVID -Recent echocardiogram 1 year ago with preserved EF -Restarted Xarelto 20 mg daily and should continue this indefinitely Appreciate cardiology consultation Optimize potassium to 4 and magnesium to 2 as needed Continue telemetry monitoring (2) Pneumonia due to COVID-19 virus: Plan: Pneumonia/bronchitis due to COVID-19/with hypoxia-with persistent cough, some wheezing Chest CT with bilateral infiltrates consistent with viral pneumonia, no lobar consolidation No fevers Continues with oxygen requirement, stable on 4L this morning She is proning at night-encourage proning during the day time as well intermittently Continue incentive spirometry and flutter valve Continue dexamethasone 6 mg IV daily x10-day course Albuterol HFA 2 puffs 4 times daily and every 2 hours as needed DuoNebs every 2 hours as needed Guaifenesin extended release 1200 mg p.o. every 12 hours Continue Hycodan syrup-scheduled dose as she forgets to ask for it and has significant coughing episodes Continue azithromycin 250 mg p.o. once daily x5-day course-last dose today Continue supplemental O2 and attempt to wean off as tolerated keep pulse ox greater than 92% anticipate d/c to home in a few days once oxygen is off (3) Hypoxia: Plan: Acute respiratory failure with hypoxia due to COVID 19 pneumonia as well as some volume overload component with acute diastolic CHF from rapid atrial fibrillation Received IV Lasix x1 on 02/11 I's and O's not accurately recorded Restarted home torsemide and spironolactone, making urine repeat CXR if her oxygen requirements go up (4) Edema: Plan: Continue home torsemide and spironolactone no edema in legs today (5) Acute kidney injury: Plan: Creatinine 1.32 upon admission, creatinine now normal BMP tomorrow (6) Transaminitis: Plan: AST 105 on admission. Now almost back to normal with AST and ALT in the 70s Likely secondary to Covid pneumonia (7) Hiatal hernia: Plan: Hiatal hernia/question 3.4 cm stomach mass versus flattened stomach on CT- Recommendation for outpatient gastroenterology assessment once Covid 19 infection resolved Continue IV Pepcid for mild nausea (8) Hypokalemia: Plan: Resolved Follow BMP QOD (9) Ear fullness: Plan: Continue nasal saline spray Add on Flonase nasal spray (10) Nausea: Plan: Secondary to possible gastritis, does have hiatal hernia-still occurring but is mild Is tolerating p.o. Also could be from Covid Continue Pepcid Zofran as needed (11) Hypothyroid: Plan: TSH here is normal Continue home levothyroxine (12) DVT prophylaxis: Plan: Xarelto Disposition-continued stay on telemetry Plan: d/c to home once off oxygen, likely in a few days Admission and Anticipated Discharge Date Admission Date: February 10, 2021 Subjective patient doing well, has a dry cough but does not feel that short of breath no fever/chills, no sweats, no chest pain, no diarrhea, no nausea appetite is okay, she c/o some constipation, few days since last BM reviewed chart, reviewed labs discussed that I will see her next discussed that she will be here for a few more days, ticket out of here is being off oxygen Review of Systems Review of Systems: All systems reviewed & are unremarkable except as noted in Subjective Constitutional: no fever Respiratory: + cough and + dyspnea on exertion; no dyspnea and no wheezing Cardiovascular: no chest pain and no edema Gastrointestinal: + constipation; no abdominal pain, no nausea, no vomiting and no diarrhea/loose stools Physical Exam Constitutional: well developed, well nourished and + ill appearing; no acute distress Neck: trachea midline, no thyromegaly Respiratory: normal respiratory effort and + cough; no labored breathing Auscultation: + rhonchi; no crackles, no rales and no wheezes Cardiovascular: Rate/Rhythm: regular rate and + irregularly irregular Heart Sounds: normal S1 and normal S2; no murmur Vessels: no JVD Extremities: normal capillary refill; no edema Gastrointestinal (Abdomen): normal bowel sounds, soft, nontender, no hepatosplenomegaly Musculoskeletal: no cyanosis or clubbing, extremities motor strength 5/5 Skin: no rashes, warm and dry Neurologic: normal touch/pain/proprioception, CN's II-XI intact bilaterally, moves all extremities and awake; no focal motor deficits Psychiatric: A+Ox3, euthymic affect Results & Data Results & Data ([facility]) Vital Signs (Past 12 Hours) Vital Signs Temp Pulse Pulse Pulse Resp BP Pulse Ox 02/14/21 08:00 36.5 C 92 H 20 118/84 93 02/14/21 07:42 87 18 90 02/14/21 04:10 36.5 C 95 H 20 119/89 95 02/14/21 00:07 36.5 C 86 20 119/83 96 02/13/21 23:40 93 H Medications Administered Current Inpatient Medications Acetaminophen (Acetaminophen 325 Mg Tab) 650 mg PO Q4H PRN PRN Reason: Pain or Fever Stop: 03/12/21 15:12 Albuterol (Albuterol Hfa 8 Gm Inhaler) 2 puffs INH QIDR [facility] Stop: 03/12/21 15:59 Last Admin: 02/14/21 07:39 Dose: 2 puffs Documented by: Albuterol (Albut/Ipratrop 3mg/0.5mg Neb 3 Ml Vial) 3 ml NEB Q2H PRN PRN Reason: dyspnea Stop: 03/12/21 15:12 Last Admin: 02/12/21 17:55 Dose: 3 ml Documented by: Aspirin (Aspirin 81 Mg Ectab) 81 mg PO [facility] Stop: 03/13/21 08:59 Last Admin: 02/14/21 08:10 Dose: 81 mg Documented by: Azithromycin (Azithromycin 250 Mg Tab) 250 mg PO [facility]; Protocol Stop: 02/16/21 23:59 Last Admin: 02/14/21 08:06 Dose: 250 mg Documented by: Fluticasone Propionate (Fluticasone Propionate Na Spr 16 Gm Btl) 2 sprays NA DAILY [facility] Stop: 03/16/21 08:59 Last Admin: 02/14/21 08:07 Dose: 2 sprays Documented by: Folic Acid (Folic Acid 1 Mg Tab) 1 mg PO [facility] Stop: 03/12/21 08:59 Last Admin: 02/14/21 08:07 Dose: 1 mg Documented by: Guaifenesin (Guaifenesin 600 Mg Tabcr) 1,200 mg PO Q12 [facility] Stop: 03/12/21 20:59 Last Admin: 02/14/21 08:07 Dose: 1,200 mg Documented by: Hydrocodone Bit/Homatropine Methylb (Hydrocodone/Homatropine Syrup 5mg/1.5mg 5ml Udp) 5 ml PO Q4H [facility] Stop: 02/27/21 00:00 Last Admin: 02/14/21 07:59 Dose: 5 ml Documented by: Lorazepam (Ativan) 1 mg in 2 mls @ 2 mls/min IV UD PRN; Protocol PRN Reason: EtOH Withdrawl AWSS Score 6,7 Stop: 03/12/21 11:55 Lorazepam (Ativan) 2 mg in 4 mls @ 4 mls/min IV UD PRN; Protocol PRN Reason: EtOH Withdrawl AWSS Score 8,9 Stop: 03/12/21 11:55 Lorazepam (Ativan) 3 mg in 6 mls @ 4 mls/min IV ONCE PRN; Protocol PRN Reason: EtOH Withdrawl AWSS Score >=10 Stop: 03/12/21 11:55 Dexamethasone 6 mg/ Syringe 1.5 mls @ 1 mls/min IV Q24H [facility] Stop: 03/13/21 08:59 Last Admin: 02/14/21 08:08 Dose: 1 mls/min Documented by: Famotidine 20 mg/ Syringe 5 mls @ 2.5 mls/min IV BID [facility] Stop: 03/13/21 20:59 Last Admin: 02/14/21 08:08 Dose: 2.5 mls/min Documented by: Levothyroxine Sodium (Levothyroxine Sodium 25 Mcg Tablet) 25 mcg PO DAILYBB [facility] Stop: 03/13/21 06:29 Last Admin: 02/14/21 06:01 Dose: 25 mcg Documented by: Metoprolol Tartrate (Metoprolol Tartrate 1 Mg/Ml Vial) 5 mg IV Q4 PRN PRN Reason: Tachycardia Stop: 03/12/21 15:12 Metoprolol Tartrate (Metoprolol Tartrate 50 Mg Tab) 50 mg PO BID [facility] Stop: 03/16/21 08:59 Last Admin: 02/14/21 08:07 Dose: 50 mg Documented by: Ondansetron HCl (Ondansetron Inj 2 Mg/Ml 2 Ml Vial) 4 mg IV Q6H PRN PRN Reason: Nausea Stop: 03/12/21 15:12 Polyethylene Glycol (Polyethylene (Miralax) 17 Gm Pack) 17 gm PO DAILY [facility] Stop: 03/16/21 09:59 Rivaroxaban (Rivaroxaban 20 Mg Tab) 20 mg PO QDD [facility] Stop: 03/13/21 16:29 Last Admin: 02/13/21 16:58 Dose: 20 mg Documented by: Senna/Docusate Sodium (Docusate Sodium/Senna 50/8.6mg Tab) [facility] [place] Stop: 03/15/21 13:29 Last Admin: 02/14/21 08:09 Dose: 1 tab Documented by: Sodium Chloride (Sodium Chloride 0.65% Na Soln 45 Ml ([place])) 2 sprays NA QID PRN PRN Reason: ear fullness Stop: 03/13/21 19:25 Spironolactone (Spironolactone 25 Mg Tab) 75 [facility] [place] Stop: 03/15/21 08:59 Last Admin: 02/14/21 08:06 Dose: 75 mg Documented by: Thiamine HCl (Thiamine Hcl 100 Mg Tab) 100 mg PO QAM [facility] Stop: 03/12/21 08:59 Last Admin: 02/14/21 08:06 Dose: 100 mg Documented by: Torsemide (Torsemide 10 Mg Tab) 10 mg PO [facility] Stop: 03/15/21 08:59 Last Admin: 02/14/21 08:10 Dose: 10 mg Documented by: Vitamin D (Cholecalciferol 1,000 Units 25 Mcg Tab) 5,000 units PO QAM [facility] Stop: 03/12/21 15:12 Last Admin: 02/14/21 08:09 Dose: 5,000 units Documented by: Zinc Sulfate (Zinc Sulfate 220 Mg Capsule) 220 mg PO QAM [facility] Stop: 03/12/21 15:12 Last Admin: 02/14/21 08:10 Dose: 220 mg Documented by: PG Care Time/CCT Total # of Minutes Spent Total Time Spent with Patient: Total time spent is greater than 50% in coordination of care (as documented) at patient's floor/unit and/or counseling patient: Coding Level of Care Code 46780 Subseq Hosp Care Lvl 3 Diagnoses Atrial fibrillation with RVR I48.91 Pneumonia due to COVID-19 virus U07.1; J12.82 Hypoxia R09.02 Edema R60.9 Acute kidney injury N17.9 Transaminitis R74.01 Hiatal hernia K44.9 Hypokalemia E87.6 Ear fullness H93.8X9 Nausea R11.0 Hypothyroid E03.9 DVT prophylaxis Z29.9
[2021-02-14] MEDS ORDERED: ALBUTEROL HFA 8 GM INHALER INH PRN (11:30)
[2021-02-14] MEDS: POLYETHYLENE (MIRALAX) 17 GM PACK PO SCH (12:01)
[2021-02-14] MEDS: RIVAROXABAN 20 MG TAB PO SCH (16:24)
[2021-02-15] MEDS: HYDROcodone/HOMATROPINE SYRUP 5MG/1.5MG 5ML UDP PO SCH ×2 (03:28→07:56)
[2021-02-15 06:25] LABS: Hematocrit (blood only) 39.5 % (37-47); Hemoglobin 12.8 g/dL (12.0-16.0); Mean Corpuscular Hemoglobin 29.5 pg (25-34); Mean Corpuscular Hgb Conc 32.4 g/dL (32-36); Platelet Count 414 K/uL (130-400); RDW Coefficient of Variation 13.2 % (11.5-14.5); RDW Standard Deviation 44.2 fL (36.4-46.3); Red Blood Count 4.34 M/uL (4.2-5.4); White Blood Count 8.72 K/uL (4.8-10.8)
[2021-02-15] MEDS: LEVOTHYROXINE SODIUM 25 MCG TABLET PO SCH (06:26)
[2021-02-15 07:00] LABS: BUN Creatinine Ratio 24.3 (10-20); C Reactive Protein 2.18 mg/dl (0-0.29); Calcium 8.7 mg/dl (8.5-10.1); Est GFR (African American) 92.6 ml/min; Est GFR (Non-African American) 79.9 ml/min; Magnesium 2.4 mg/dl (1.8-2.4); Potassium 4.1 mmol/L (3.5-5.1)
--- NOTE | 2021-02-15 07:31 | Hospitalist Progress Note ---
Date of Service February 15, 2021 Assessment & Plan (1) Atrial fibrillation with RVR: Plan: Kiera diaz with RVR/paroxysmal atrial fibrillation She has a history of atrial fibrillation was seen by cardiology and 2020 and was started on Xarelto at that time, but she reports she ran out and never had it refilled. Suspect rapid atrial fibrillation is secondary to physiologic stress of COVID-19 pneumonia and hypoxia, along with hypokalemia and dehydration. Rates are better today, 70-80s, go up with coughing, will continue Lopressor 50mg BID -Recent echocardiogram 1 year ago with preserved EF -Restarted Xarelto 20 mg daily and should continue this indefinitely Appreciate cardiology consultation Optimize potassium to 4 and magnesium to 2 as needed Continue telemetry monitoring anticipate she will go home on metoprolol 50mg BID and Xarelto, follow up cardiology (2) Pneumonia due to COVID-19 virus: Plan: Pneumonia/bronchitis due to COVID-19/with hypoxia-with persistent cough, some wheezing Chest CT with bilateral infiltrates consistent with viral pneumonia, no lobar consolidation No fevers Continues with oxygen requirement, but improved to 3L, 97%, titrate down further today She is proning at night-encourage proning during the day time as well intermittently Continue incentive spirometry and flutter valve Continue dexamethasone 6 mg IV daily x10-day course Albuterol HFA 2 puffs 4 times daily and every 2 hours as needed DuoNebs every 2 hours as needed Guaifenesin extended release 1200 mg p.o. every 12 hours Continue Hycodan syrup-scheduled dose as she forgets to ask for it and has significant coughing episodes Continue azithromycin 250 mg p.o. once daily x5-day course-last dose 02/14 Continue supplemental O2 and attempt to wean off as tolerated keep pulse ox greater than 92% anticipate d/c to home in a few days once oxygen is off (3) Hypoxia: Plan: Acute respiratory failure with hypoxia due to COVID 19 pneumonia as well as some volume overload component with acute diastolic CHF from rapid atrial fibrillation Received IV Lasix x1 on 02/11 I's and O's not accurately recorded Restarted home torsemide and spironolactone, making urine repeat CXR if her oxygen requirements go up down to 3L today, moving in right direction (4) Edema: Plan: Continue home torsemide and spironolactone no edema in legs today (5) Acute kidney injury: Plan: Creatinine 1.32 upon admission, creatinine now normal BMP today shows Cr 0.77 and K is 4.1 (6) Transaminitis: Plan: AST 105 on admission. Now almost back to normal with AST and ALT in the 70s Likely secondary to Covid pneumonia (7) Hiatal hernia: Plan: Hiatal hernia/question 3.4 cm stomach mass versus flattened stomach on CT- Recommendation for outpatient gastroenterology assessment once Covid 19 infection resolved Continue IV Pepcid for mild nausea (8) Hypokalemia: Plan: Resolved Follow BMP QOD (9) Ear fullness: Plan: Continue nasal saline spray Add on Flonase nasal spray (10) Nausea: Plan: Secondary to possible gastritis, does have hiatal hernia-still occurring but is mild Is tolerating p.o. Also could be from Covid Continue Pepcid Zofran as needed (11) Hypothyroid: Plan: TSH here is normal Continue home levothyroxine (12) DVT prophylaxis: Plan: Xarelto Disposition-continued stay on telemetry Plan: d/c to home once off oxygen, likely in a few days Admission and Anticipated Discharge Date Admission Date: February 10, 2021 Subjective patient doing well, stable on 3L, 97%, try to titrate down further still with cough, will change to Codeine to get more relief no bowel movement yet, making urine no fever/chills, no nausea/vomiting + cough and dyspnea, no chest pain labs reviewed, WBC normal, Cr normal, CRP 2.18 Review of Systems Review of Systems: All systems reviewed & are unremarkable except as noted in Subjective Physical Exam Constitutional: well developed, well nourished and comfortable; no acute distress Neck: trachea midline, no thyromegaly Respiratory: normal respiratory effort and + cough; no labored breathing Auscultation: no crackles, no rales, no rhonchi and no wheezes Cardiovascular: Rate/Rhythm: regular rate and + irregularly irregular Heart Sounds: normal S1 and normal S2; no murmur Vessels: no JVD Extremities: normal capillary refill; no edema Gastrointestinal (Abdomen): normal bowel sounds, soft, nontender, no hepatosplenomegaly Musculoskeletal: no cyanosis or clubbing, extremities motor strength 5/5 Skin: no rashes, warm and dry Neurologic: normal touch/pain/proprioception, CN's II-XI intact bilaterally, moves all extremities and awake; no focal motor deficits Psychiatric: A+Ox3, euthymic affect Results & Data Results & Data ([facility]) Vital Signs (Past 12 Hours) Vital Signs Temp Pulse Pulse Pulse Resp BP Pulse Ox 02/15/21 03:26 36.5 C 79 18 124/78 95 02/14/21 23:29 36.5 C 91 H 11 L 133/91 92 02/14/21 22:20 87 02/14/21 20:13 36.7 C 86 113/75 92 Laboratory Results Laboratory Results - last 24 hr 02/15/21 02/15/21 05:33 05:33 WBC 8.72 RBC 4.34 Hgb 12.8 Hct 39.5 MCV 91.0 MCH 29.5 MCHC 32.4 RDW Std Deviation 44.2 RDW Coeff of Nadege 13.2 Plt Count 414 H MPV 10.0 Sodium 140 Potassium 4.1 Chloride 107 Carbon Dioxide 31 Anion Gap 2.0 L BUN 19 H Creatinine 0.77 Est Cr Clr Drug Dosing 73.0 Est GFR ( Amer) 92.6 Est GFR (Non-Af Amer) 79.9 BUN/Creatinine Ratio 24.3 H Glucose 90 Calcium 8.7 Magnesium 2.4 C-Reactive Protein 2.18 H Medications Administered Current Inpatient Medications Acetaminophen (Acetaminophen 325 Mg Tab) 650 mg PO Q4H PRN PRN Reason: Pain or Fever Stop: 03/12/21 15:12 Albuterol (Albut/Ipratrop 3mg/0.5mg Neb 3 Ml Vial) 3 ml NEB Q2H PRN PRN Reason: dyspnea Stop: 03/12/21 15:12 Last Admin: 02/12/21 17:55 Dose: 3 ml Documented by: Albuterol (Albuterol Hfa 8 Gm Inhaler) 2 puffs INH Q4 PRN PRN Reason: Shortness Of Breath Or Wheezing Stop: 03/16/21 11:28 Aspirin (Aspirin 81 Mg Ectab) 81 mg PO [facility] Stop: 03/13/21 08:59 Last Admin: 02/14/21 08:10 Dose: 81 mg Documented by: Azithromycin (Azithromycin 250 Mg Tab) 250 mg PO [facility]; Protocol Stop: 02/16/21 23:59 Last Admin: 02/14/21 08:06 Dose: 250 mg Documented by: Fluticasone Propionate (Fluticasone Propionate Na Spr 16 Gm Btl) 2 sprays NA DAILY [facility] Stop: 03/16/21 08:59 Last Admin: 02/14/21 08:07 Dose: 2 sprays Documented by: Folic Acid (Folic Acid 1 Mg Tab) 1 mg PO QAM [facility] Stop: 03/12/21 08:59 Last Admin: 02/14/21 08:07 Dose: 1 mg Documented by: Guaifenesin (Guaifenesin 600 Mg Tabcr) 1,200 mg PO Q12 [facility] Stop: 03/12/21 20:59 Last Admin: 02/14/21 20:17 Dose: 1,200 mg Documented by: Hydrocodone Bit/Homatropine Methylb (Hydrocodone/Homatropine Syrup 5mg/1.5mg 5ml Udp) 5 ml PO Q4H [facility] Stop: 02/27/21 00:00 Last Admin: 02/15/21 03:28 Dose: 5 ml Documented by: Lorazepam (Ativan) 1 mg in 2 mls @ 2 mls/min IV UD PRN; Protocol PRN Reason: EtOH Withdrawl AWSS Score 6,7 Stop: 03/12/21 11:55 Lorazepam (Ativan) 2 mg in 4 mls @ 4 mls/min IV UD PRN; Protocol PRN Reason: EtOH Withdrawl AWSS Score 8,9 Stop: 03/12/21 11:55 Lorazepam (Ativan) 3 mg in 6 mls @ 4 mls/min IV ONCE PRN; Protocol PRN Reason: EtOH Withdrawl AWSS Score >=10 Stop: 03/12/21 11:55 Dexamethasone 6 mg/ Syringe 1.5 mls @ 1 mls/min IV Q24H [facility] Stop: 03/13/21 08:59 Last Admin: 02/14/21 08:08 Dose: 1 mls/min Documented by: Famotidine 20 mg/ Syringe 5 mls @ 2.5 mls/min IV BID [facility] Stop: 03/13/21 20:59 Last Admin: 02/14/21 20:18 Dose: 2.5 mls/min Documented by: Levothyroxine Sodium (Levothyroxine Sodium 25 Mcg Tablet) 25 mcg PO DAILYBB [facility] Stop: 03/13/21 06:29 Last Admin: 02/15/21 06:26 Dose: 25 mcg Documented by: Metoprolol Tartrate (Metoprolol Tartrate 1 Mg/Ml Vial) 5 mg IV Q4 PRN PRN Reason: Tachycardia Stop: 03/12/21 15:12 Metoprolol Tartrate (Metoprolol Tartrate 50 Mg Tab) 50 mg PO BID [facility] Stop: 03/16/21 08:59 Last Admin: 02/14/21 20:18 Dose: 50 mg Documented by: Ondansetron HCl (Ondansetron Inj 2 Mg/Ml 2 Ml Vial) 4 mg IV Q6H PRN PRN Reason: Nausea Stop: 03/12/21 15:12 Polyethylene Glycol (Polyethylene (Miralax) 17 Gm Pack) 17 gm PO DAILY [facility] Stop: 03/16/21 09:59 Last Admin: 02/14/21 12:01 Dose: 17 gm Documented by: Rivaroxaban (Rivaroxaban 20 Mg Tab) 20 mg PO QDD [facility] Stop: 03/13/21 16:29 Last Admin: 02/14/21 16:24 Dose: 20 mg Documented by: Senna/Docusate Sodium (Docusate Sodium/Senna 50/8.6mg Tab) [facility] [place]: 03/15/21 13:29 Last Admin: 02/14/21 08:09 Dose: 1 tab Documented by: Sodium Chloride (Sodium Chloride 0.65% Na Soln 45 Ml ([place])) 2 sprays NA QID PRN PRN Reason: ear fullness Stop: 03/13/21 19:25 Spironolactone (Spironolactone 25 Mg Tab) 75 [facility] [place] [facility] [place] Stop: 03/15/21 08:59 Last Admin: 02/14/21 08:06 Dose: 75 mg Documented by: Thiamine HCl (Thiamine Hcl 100 Mg Tab) 100 [facility] [place] [facility] [place] Stop: 03/12/21 08:59 Last Admin: 02/14/21 08:06 Dose: 100 mg Documented by: Torsemide (Torsemide 10 Mg Tab) 10 [facility] [place] [facility] [place] Stop: 03/15/21 08:59 Last Admin: 02/14/21 08:10 Dose: 10 mg Documented by: Vitamin D (Cholecalciferol 1,000 Units 25 Mcg Tab) 5,000 units [facility] [place] [facility] [place]: 03/12/21 15:12 Last Admin: 02/14/21 08:09 Dose: 5,000 units Documented by: Zinc Sulfate (Zinc Sulfate 220 Mg Capsule) 220 mg PO QAM [facility] Stop: 03/12/21 15:12 Last Admin: 02/14/21 08:10 Dose: 220 mg Documented by: PG Care Time/CCT Total # of Minutes Spent Total Time Spent with Patient: Total time spent is greater than 50% in coordination of care (as documented) at patient's floor/unit and/or counseling patient: Coding Level of Care Code 31406 Subseq Hosp Care Lvl 3 Diagnoses Atrial fibrillation with RVR I48.91 Pneumonia due to COVID-19 virus U07.1; J12.82 Hypoxia R09.02 Edema R60.9 Acute kidney injury N17.9 Transaminitis R74.01 Hiatal hernia K44.9 Hypokalemia E87.6 Ear fullness H93.8X9 Nausea R11.0 Hypothyroid E03.9 DVT prophylaxis Z29.9
[2021-02-15] MEDS: ASPIRIN 81 MG ECTAB PO SCH (08:00)
[2021-02-15] MEDS: POLYETHYLENE (MIRALAX) 17 GM PACK PO SCH (08:00)
[2021-02-15] MEDS: METOPROLOL TARTRATE 50 MG TAB PO SCH ×2 (08:00→20:06)
[2021-02-15] MEDS: ZINC SULFATE 220 MG CAPSULE PO SCH (08:01)
[2021-02-15] MEDS: guaiFENesin 600 MG TABCR PO SCH ×2 (08:01→20:06)
[2021-02-15] MEDS: AZITHROMYCIN 250 MG TAB PO SCH (08:01)
[2021-02-15] MEDS: TORSEMIDE 10 MG TAB PO SCH (08:01)
[2021-02-15] MEDS: DOCUSATE SODIUM/SENNA 50/8.6MG TAB PO SCH (08:01)
[2021-02-15] MEDS: SPIRONOLACTONE 25 MG TAB PO SCH (08:01)
[2021-02-15] MEDS: FOLIC ACID 1 MG TAB PO SCH (08:01)
[2021-02-15] MEDS: CHOLECALCIFEROL 1,000 UNITS 25 MCG TAB PO SCH (08:01)
[2021-02-15] MEDS: FLUTICASONE PROPIONATE NA SPR 16 GM BTL SCH (08:02)
[2021-02-15] MEDS: FAMOTIDINE 20 MG in SYRINGE 3 ML IV SCH ×2 (08:02→20:05)
[2021-02-15] MEDS: dexAMETHasone 6 MG in SYRINGE 0 ML IV SCH (08:02)
[2021-02-15] MEDS: THIAMINE HCL 100 MG TAB PO SCH (08:03)
[2021-02-15] MEDS: RIVAROXABAN 20 MG TAB PO SCH (16:01)
[2021-02-16] MEDS: LEVOTHYROXINE SODIUM 25 MCG TABLET PO SCH (06:34)
[2021-02-16] MEDS: FAMOTIDINE 20 MG in SYRINGE 3 ML IV SCH ×2 (07:57→21:03)
[2021-02-16] MEDS: dexAMETHasone 6 MG in SYRINGE 0 ML IV SCH (07:58)
[2021-02-16] MEDS: FLUTICASONE PROPIONATE NA SPR 16 GM BTL SCH (07:58)
[2021-02-16] MEDS: AZITHROMYCIN 250 MG TAB PO SCH (07:59)
[2021-02-16] MEDS: METOPROLOL TARTRATE 50 MG TAB PO SCH ×2 (07:59→21:05)
[2021-02-16] MEDS: ZINC SULFATE 220 MG CAPSULE PO SCH (07:59)
[2021-02-16] MEDS: FOLIC ACID 1 MG TAB PO SCH (07:59)
[2021-02-16] MEDS: ASPIRIN 81 MG ECTAB PO SCH (07:59)
[2021-02-16] MEDS: guaiFENesin 600 MG TABCR PO SCH ×2 (07:59→21:04)
[2021-02-16] MEDS: TORSEMIDE 10 MG TAB PO SCH (07:59)
[2021-02-16] MEDS: SPIRONOLACTONE 25 MG TAB PO SCH (07:59)
[2021-02-16] MEDS: CHOLECALCIFEROL 1,000 UNITS 25 MCG TAB PO SCH (08:00)
[2021-02-16] MEDS: THIAMINE HCL 100 MG TAB PO SCH (08:00)
[2021-02-16] MEDS: DOCUSATE SODIUM/SENNA 50/8.6MG TAB PO SCH (08:01)
[2021-02-16] MEDS: POLYETHYLENE (MIRALAX) 17 GM PACK PO SCH (08:01)
--- NOTE | 2021-02-16 09:58 | Hospitalist Progress Note ---
Date of Service February 16, 2021 Assessment & Plan (1) Atrial fibrillation with RVR: Plan: Kiera diaz with RVR/paroxysmal atrial fibrillation She has a history of atrial fibrillation was seen by cardiology and 2020 and was started on Xarelto at that time, but she reports she ran out and never had it refilled. Suspect rapid atrial fibrillation is secondary to physiologic stress of COVID-19 pneumonia and hypoxia, along with hypokalemia and dehydration. Rates are better past two days, 70-80s, go up with coughing, will continue Lopressor 50mg BID -Recent echocardiogram 1 year ago with preserved EF -Restarted Xarelto 20 mg daily and should continue this indefinitely Appreciate cardiology consultation Optimize potassium to 4 and magnesium to 2 as needed Continue telemetry monitoring anticipate she will go home tomorrow on metoprolol 50mg BID and Xarelto, follow up cardiology (2) Pneumonia due to COVID-19 virus: Plan: Pneumonia/bronchitis due to COVID-19/with hypoxia-with persistent cough, some wheezing Chest CT with bilateral infiltrates consistent with viral pneumonia, no lobar consolidation No fevers down to room air today, monitor for 24 hours on room air to make sure she is stable, send home tomorrow morning Continue incentive spirometry and flutter valve Continue dexamethasone 6 mg IV daily x10-day course, change to PO on discharge Albuterol HFA 2 puffs 4 times daily and every 2 hours as needed DuoNebs every 2 hours as needed Guaifenesin extended release 1200 mg p.o. every 12 hours Continue Hycodan syrup-scheduled dose as she forgets to ask for it and has significant coughing episodes Continue azithromycin 250 mg p.o. once daily x5-day course-last dose 02/14 Continue supplemental O2 and attempt to wean off as tolerated keep pulse ox greater than 92% anticipate d/c to home tomorrow AM (3) Hypoxia: Plan: Acute respiratory failure with hypoxia due to COVID 19 pneumonia as well as some volume overload component with acute diastolic CHF from rapid atrial fibrillation Received IV Lasix x1 on 02/11 I's and O's not accurately recorded Restarted home torsemide and spironolactone, making urine room air today, monitor for 24 hours on room air to ensure stability (4) Edema: Plan: Continue home torsemide and spironolactone no edema in legs today (5) Acute kidney injury: Plan: Creatinine 1.32 upon admission, creatinine now normal BMP 02/15 shows Cr 0.77 and K is 4.1 (6) Transaminitis: Plan: AST 105 on admission. Now almost back to normal with AST and ALT in the 70s Likely secondary to Covid pneumonia (7) Hiatal hernia: Plan: Hiatal hernia/question 3.4 cm stomach mass versus flattened stomach on CT- Recommendation for outpatient gastroenterology assessment once Covid 19 infection resolved Continue IV Pepcid for mild nausea (8) Hypokalemia: Plan: Resolved Follow BMP QOD (9) Ear fullness: Plan: Continue nasal saline spray Add on Flonase nasal spray (10) Nausea: Plan: Secondary to possible gastritis, does have hiatal hernia-still occurring but is mild Is tolerating p.o. Also could be from Covid Continue Pepcid Zofran as needed (11) Hypothyroid: Plan: TSH here is normal Continue home levothyroxine (12) DVT prophylaxis: Plan: Xarelto Disposition-continued stay on telemetry Plan: home tomorrow Admission and Anticipated Discharge Date Admission Date: February 10, 2021 Subjective patient down to room air this morning, coughing less with the Codeine, no fever/chills she is feeling better overall, finally had a BM, she is making urine no chest pain, eating well, ambulating in the room, she visited with her last night discussed plans for discharge tomorrow morning, she will arrange for a ride reviewed tele, HR is stable on metoprolol, spoke with her about plans for metoprolol and Xarelto Review of Systems Review of Systems: All systems reviewed & are unremarkable except as noted in Subjective Respiratory: + cough and + dyspnea on exertion; no dyspnea Physical Exam Constitutional: well developed, well nourished and comfortable; no acute distress Neck: trachea midline, no thyromegaly Respiratory: normal respiratory effort and + cough; no labored breathing Auscultation: no crackles, no rales, no rhonchi and no wheezes Cardiovascular: Rate/Rhythm: regular rate and + irregularly irregular Heart Sounds: normal S1 and normal S2; no murmur Vessels: no JVD Extremities: normal capillary refill; no edema Gastrointestinal (Abdomen): normal bowel sounds, soft, nontender, no hepatosplenomegaly Musculoskeletal: no cyanosis or clubbing, extremities motor strength 5/5 Skin: no rashes, warm and dry Neurologic: normal touch/pain/proprioception, CN's II-XI intact bilaterally, moves all extremities and awake; no focal motor deficits Psychiatric: A+Ox3, euthymic affect Results & Data Results & Data ([facility]) Vital Signs (Past 12 Hours) Vital Signs Temp Pulse Pulse Resp BP BP Pulse Ox 02/16/21 08:12 93 H 02/16/21 07:20 36.6 C 73 15 115/81 98 02/16/21 03:22 36.9 C 91 H 19 125/92 93 02/15/21 23:49 82 02/15/21 22:51 36.9 C 87 17 118/81 98 Medications Administered Current Inpatient Medications Acetaminophen (Acetaminophen 325 Mg Tab) 650 mg PO Q4H PRN PRN Reason: Pain or Fever Stop: 03/12/21 15:12 Albuterol (Albut/Ipratrop 3mg/0.5mg Neb 3 Ml Vial) 3 ml NEB Q2H PRN PRN Reason: dyspnea Stop: 03/12/21 15:12 Last Admin: 02/12/21 17:55 Dose: 3 ml Documented by: Albuterol (Albuterol Hfa 8 Gm Inhaler) 2 puffs INH Q4 PRN PRN Reason: Shortness Of Breath Or Wheezing Stop: 03/16/21 11:28 Aspirin (Aspirin 81 Mg Ectab) [facility] [place]: 03/13/21 08:59 Last Admin: 02/16/21 07:59 Dose: 81 mg Documented by: Azithromycin (Azithromycin 250 Mg Tab) 250 mg PO [facility]; Protocol Stop: 02/16/21 23:59 Last Admin: 02/16/21 07:59 Dose: 250 mg Documented by: Fluticasone Propionate (Fluticasone Propionate Na Spr 16 Gm Btl) 2 sprays NA DAILY [facility] Stop: 03/16/21 08:59 Last Admin: 02/16/21 07:58 Dose: 2 sprays Documented by: Folic Acid (Folic Acid 1 Mg Tab) [facility] [place] Stop: 03/12/21 08:59 Last Admin: 02/16/21 07:59 Dose: 1 mg Documented by: Guaifenesin (Guaifenesin 600 Mg Tabcr) 1,200 mg PO Q12 [facility] Stop: 03/12/21 20:59 Last Admin: 02/16/21 07:59 Dose: 1,200 mg Documented by: Guaifenesin/Codeine Phosphate (Guaifenesin/Codeine 200mg/20mg 10ml Udc) 10 ml PO Q6H PRN PRN Reason: Cough Stop: 03/17/21 11:32 Last Admin: 02/16/21 03:30 Dose: 10 ml Documented by: Lorazepam (Ativan) 1 mg in 2 mls @ 2 mls/min IV UD PRN; Protocol PRN Reason: EtOH Withdrawl AWSS Score 6,7 Stop: 03/12/21 11:55 Lorazepam (Ativan) 2 mg in 4 mls @ 4 mls/min IV UD PRN; Protocol PRN Reason: EtOH Withdrawl AWSS Score 8,9 Stop: 03/12/21 11:55 Lorazepam (Ativan) 3 mg in 6 mls @ 4 mls/min IV ONCE PRN; Protocol PRN Reason: EtOH Withdrawl AWSS Score >=10 Stop: 03/12/21 11:55 Dexamethasone 6 mg/ Syringe 1.5 mls @ 1 mls/min IV Q24H [facility] Stop: 03/13/21 08:59 Last Admin: 02/16/21 07:58 Dose: 1 mls/min Documented by: Famotidine 20 mg/ Syringe 5 mls @ 2.5 mls/min IV BID [facility] Stop: 03/13/21 20:59 Last Admin: 02/16/21 07:57 Dose: 2.5 mls/min Documented by: Levothyroxine Sodium (Levothyroxine Sodium 25 Mcg Tablet) 25 mcg PO DAILYBB [facility] Stop: 03/13/21 06:29 Last Admin: 02/16/21 06:34 Dose: 25 mcg Documented by: Metoprolol Tartrate (Metoprolol Tartrate 1 Mg/Ml Vial) 5 mg IV Q4 PRN PRN Reason: Tachycardia Stop: 03/12/21 15:12 Metoprolol Tartrate (Metoprolol Tartrate 50 Mg Tab) 50 mg PO BID [facility] Stop: 03/16/21 08:59 Last Admin: 02/16/21 07:59 Dose: 50 mg Documented by: Ondansetron HCl (Ondansetron Inj 2 Mg/Ml 2 Ml Vial) 4 mg IV Q6H PRN PRN Reason: Nausea Stop: 03/12/21 15:12 Polyethylene Glycol (Polyethylene (Miralax) 17 Gm Pack) 17 gm PO DAILY [facility] Stop: 03/16/21 09:59 Last Admin: 02/16/21 08:01 Dose: Not Given Documented by: Rivaroxaban (Rivaroxaban 20 Mg Tab) 20 mg PO QDD [facility] Stop: 03/13/21 16:29 Last Admin: 02/15/21 16:01 Dose: 20 mg Documented by: Senna/Docusate Sodium (Docusate Sodium/Senna 50/8.6mg Tab) 1 tab [facility] [place] Stop: 03/15/21 13:29 Last Admin: 02/16/21 08:01 Dose: Not Given Documented by: Sodium Chloride (Sodium Chloride 0.65% Na Soln 45 Ml ([place])) 2 sprays NA QID PRN PRN Reason: ear fullness Stop: 03/13/21 19:25 Spironolactone (Spironolactone 25 Mg Tab) 75 [facility] [place] Stop: 03/15/21 08:59 Last Admin: 02/16/21 07:59 Dose: 75 mg Documented by: Thiamine HCl (Thiamine Hcl 100 Mg Tab) 100 mg PO [facility] Stop: 03/12/21 08:59 Last Admin: 02/16/21 08:00 Dose: 100 mg Documented by: Torsemide (Torsemide 10 Mg Tab) 10 mg PO [facility] Stop: 03/15/21 08:59 Last Admin: 02/16/21 07:59 Dose: 10 mg Documented by: Vitamin D (Cholecalciferol 1,000 Units 25 Mcg Tab) 5,000 units PO QAM [facility] Stop: 03/12/21 15:12 Last Admin: 02/16/21 08:00 Dose: 5,000 units Documented by: Zinc Sulfate (Zinc Sulfate 220 Mg Capsule) 220 [facility] [place] Stop: 03/12/21 15:12 Last Admin: 02/16/21 07:59 Dose: 220 mg Documented by: PG Care Time/CCT Total # of Minutes Spent Total Time Spent with Patient: Total time spent is greater than 50% in coordination of care (as documented) at patient's floor/unit and/or counseling patient: Coding Level of Care Code 78692 Subseq Hosp Care Lvl 3 Diagnoses Atrial fibrillation with RVR I48.91 Pneumonia due to COVID-19 virus U07.1; J12.82 Hypoxia R09.02 Edema R60.9 Acute kidney injury N17.9 Transaminitis R74.01 Hiatal hernia K44.9 Hypokalemia E87.6 Ear fullness H93.8X9 Nausea R11.0 Hypothyroid E03.9 DVT prophylaxis Z29.9
[2021-02-16] MEDS: RIVAROXABAN 20 MG TAB PO SCH (15:47)
[2021-02-17] MEDS: LEVOTHYROXINE SODIUM 25 MCG TABLET PO SCH (06:11)
[2021-02-17] MEDS: dexAMETHasone 6 MG in SYRINGE 0 ML IV SCH (07:55)
[2021-02-17] MEDS: FAMOTIDINE 20 MG in SYRINGE 3 ML IV SCH (07:56)
[2021-02-17] MEDS: FLUTICASONE PROPIONATE NA SPR 16 GM BTL SCH (07:56)
[2021-02-17] MEDS: METOPROLOL TARTRATE 50 MG TAB PO SCH (07:57)
[2021-02-17] MEDS: ASPIRIN 81 MG ECTAB PO SCH (07:57)
[2021-02-17] MEDS: SPIRONOLACTONE 25 MG TAB PO SCH (07:57)
[2021-02-17] MEDS: FOLIC ACID 1 MG TAB PO SCH (07:57)
[2021-02-17] MEDS: ZINC SULFATE 220 MG CAPSULE PO SCH (07:57)
[2021-02-17] MEDS: THIAMINE HCL 100 MG TAB PO SCH (07:58)
[2021-02-17] MEDS: CHOLECALCIFEROL 1,000 UNITS 25 MCG TAB PO SCH (07:58)
[2021-02-17] MEDS: TORSEMIDE 10 MG TAB PO SCH (07:58)
[2021-02-17] MEDS: guaiFENesin 600 MG TABCR PO SCH (07:58)
[2021-02-17] MEDS: DOCUSATE SODIUM/SENNA 50/8.6MG TAB PO SCH (07:59)
[2021-02-17] MEDS: POLYETHYLENE (MIRALAX) 17 GM PACK PO SCH (07:59)
--- NOTE | 2021-02-17 09:49 | Discharge Summary ---
Date of Service February 17, 2021 Admission HPI Per Admitting Provider The patient is a 65-year-old female with a past medical history including paroxysmal atrial fibrillation, rectocele, hypothyroidism, edema who presents with symptoms as noted above. Abnormal laboratories: AST 105, total bili 1.3, albumin 2.9, potassium 3.4, creatinine 1.32 with baseline 1.07, D-dimer 2110 and COVID-19 positive test Imaging studies: Chest x-ray showing multifocal pneumonia CT angiography of chest PE protocol: No evidence for PE. Multiple groundglass airspace opacities seen throughout the lungs consistent with Covid pneumonia. Large hiatus hernia containing the majority of the stomach. There is a possible 3.4 cm mass within the herniated stomach, however this could represent a normal- appearing collapsed stomach. Nonemergent endoscopy or upper GI series recommended once the patient is pneumonia is resolved for further evaluation. Treatment by the emergency department included the following: Dexamethasone 6 mg IV, Klor-Con 40 mEq p.o., KCl rider 10 mEq IV x1, and NSS at 125 mils per hour. Principal Diagnosis COVID 19 pneumonia, acute hypoxic respiratory failure Discharge Exam Constitutional well developed, well nourished and comfortable; no acute distress Neck trachea midline, no thyromegaly Respiratory normal respiratory effort and + cough; no labored breathing Auscultation: no crackles, no rales, no rhonchi and no wheezes Cardiovascular Rate/Rhythm: regular rate and + irregularly irregular Heart Sounds: normal S1 and normal S2; no murmur Vessels: no JVD Extremities: normal capillary refill; no edema Gastrointestinal (Abdomen) normal bowel sounds, soft, nontender, no hepatosplenomegaly Musculoskeletal no cyanosis or clubbing, extremities motor strength 5/5 Skin no rashes, warm and dry Neurologic normal touch/pain/proprioception, CN's II-XI intact bilaterally, moves all extremities and awake; no focal motor deficits Psychiatric A+Ox3, euthymic affect Discharge Data Allergies Allergy/AdvReac Type Severity Reaction Status Date / Time No Known Drug Allergies Allergy Unknown NKDA Verified 02/10/21 10:54 Consultations 02/10/21 11:41 ED Decision to Admit Stat 02/11/21 09:35 Consult Cardiology Routine Ordered Studies 02/10/21 10:18 CT angio chest PE protocol Stat Hospital Course (1) Pneumonia due to COVID-19 virus: Pneumonia/bronchitis due to COVID-19/with hypoxia-with persistent cough, some wheezing Chest CT with bilateral infiltrates consistent with viral pneumonia, no lobar consolidation No fevers down to room air for over 24 hours, ambulating in the room without oxygen, no dyspnea or desaturations treated with dexamethasone 6 mg IV daily, change to PO for 3 more days Albuterol HFA PRN DuoNebs every 2 hours as needed Guaifenesin extended release 1200 mg p.o. every 12 hours Continue azithromycin 250 mg p.o. once daily x5-day course-last dose 02/14 Codeine 10mL q6 PRN for cough, working well discharge to home, get rest, stay well nourished and well hydrated stay in isolation until 10 days from positive COVID test (2) Atrial fibrillation with RVR: Kiera diaz with RVR on admission She has a history of atrial fibrillation was seen by cardiology and 2020 and was started on Xarelto at that time, but she reports she ran out and never had it refilled. Suspect rapid atrial fibrillation is secondary to physiologic stress of COVID-19 pneumonia and hypoxia, along with hypokalemia and dehydration. Rates are better past three days, 70-80s, go up with coughing, will continue Lopressor 50mg BID -Recent echocardiogram 1 year ago with preserved EF -Restarted Xarelto 20 mg daily and should continue this indefinitely Appreciate cardiology consultation Optimize potassium to 4 and magnesium to 2 as needed Continue telemetry monitoring go home on metoprolol 50mg BID and Xarelto, follow up cardiology (3) Hypoxia: Acute respiratory failure with hypoxia due to COVID 19 pneumonia as well as some volume overload component with acute diastolic CHF from rapid atrial fibrillation Received IV Lasix x1 on 02/11 I's and O's not accurately recorded Restarted home torsemide and spironolactone, making urine room air for over 24 hours (4) Edema: Continue home torsemide and spironolactone no edema in legs today (5) Acute kidney injury: Creatinine 1.32 upon admission, creatinine now normal BMP 02/15 shows Cr 0.77 and K is 4.1 (6) Transaminitis: AST 105 on admission. Now almost back to normal with AST and ALT in the 70s Likely secondary to Covid pneumonia (7) Hiatal hernia: Hiatal hernia/question 3.4 cm stomach mass versus flattened stomach on CT- Recommendation for outpatient gastroenterology assessment once Covid 19 infection resolved Continue IV Pepcid for mild nausea (8) Hypokalemia: Resolved Follow BMP QOD (9) Ear fullness: Continue nasal saline spray Add on Flonase nasal spray (10) Nausea: Secondary to possible gastritis, does have hiatal hernia-still occurring but is mild Is tolerating p.o. Also could be from Covid Continue Pepcid Zofran as needed (11) Hypothyroid: TSH here is normal Continue home levothyroxine (12) DVT prophylaxis: Xarelto Disposition-continued stay on telemetry home today Total Time Total Time Spent Total Time Spent (In Minutes): 33 Total Time Includes: Examination of the Patient, Discharge Planning and Medication Reconciliation Discharge Plan Discharge Items Patient Disposition: Home - Self-Care Reason For Visit: COVID-19 PNEUMONIA, ATRIAL FIB WITH RVR Discharge Diagnosis: COVID 19 pneumonia Acute hypoxic respiratory failure Atrial fibrillation with rapid ventricular response Condition on Discharge: Good Activity: Per Instructions section Activity Comment: stay in isolation until 10 days from positive COVID test (02/20/21) Driving/Machine Use: No limitations Weightbearing: Full weightbearing Non-emergency contact: Primary Care Provider Call non-emergency contact if: you have any medication questions and your symptoms worsen Follow-up/Referrals: Benjamin Gonzalez [Primary Care Provider] - 02/28/21 10:40 am (one week) Diet: Regular Addtl Attending Provider Instructions: Medications: - DEXAMETHASONE: steroid for COVID 19 pneumonia, take 6mg daily for 3 more days - CODEINE: take 10mL every 6 hours as needed for cough - METOPROLOL: 50mg twice a day for heart rate control with atrial fibrillation - XARELTO: resumed 20mg daily for anticoagulation, stroke prevention with atrial fibrillation - ZINC and VITAMIN D3: recommend taking these daily for immune support for the next week COVID 19 pneumonia: responded well to treatment, off of oxygen for over 24 hours now complete course of dexamethasone, use Codeine for cough relief get lots of rest, stay well nourished, well hydrated need to be in isolation until 02/20 but then safe to leave the house, wear a mask when you leave Atrial fibrillation with rapid response history of such, triggered by inflammation from COVID heart rate controlled with metoprolol, continue use Xarelto for stroke prevention follow up with PCP in a week, you should continue to feel a little better each day Pending Studies at Discharge: No Stand-Alone Forms: [facility], Smoking Cessation Medications and DC Order Prescriptions: New metoprolol tartrate 50 mg Tablet 50 mg PO BID 30 Days Qty: 60 RF: 3 codeine-guaifenesin 10-100 mg/5 mL Liquid 10 ml PO Q6H PRN (Reason: cough) 10 Days Qty: 237 RF: 0 Xarelto 20 mg Tablet 20 mg PO QDD 30 Days Qty: 30 RF: 3 dexamethasone 4 mg tablet 6 mg PO DAILY 3 Days Qty: 5 RF: 0 Continued spironolactone 25 mg Tablet 75 mg PO QAM RF: 0 levothyroxine [Levoxyl] 25 mcg Tablet 25 mcg PO QAM RF: 0 torsemide 20 mg tablet 10 mg PO QAM RF: 0 aspirin 81 mg Tablet,Delayed Release (Dr/Ec) 81 mg PO QAM RF: 0 acetaminophen [Tylenol Extra Strength] 500 mg Tablet 500 mg PO Q6H PRN (Reason: Pain) RF: 0 Discharge Orders: Discharge Order (Routine); Ordered 02/17/21 Ordered By: Darren España Admission Data Admit Date/Time: 02/10/21 11:38 Attending Provider: Darren España Admit Provider: Marc Perez Primary Care Provider: Benjamin Gonzalez Other Providers: Marc Perez ; Vincent Strickland. Other Interventions: Discharge Summary Assessment (RN) Last Done: 02/17/21 09:15 Coding Level of Care Code D/C DAY MANAGEMENT >30 MINS Diagnoses Atrial fibrillation with RVR I48.91 Pneumonia due to COVID-19 virus U07.1; J12.82 Hypoxia R09.02 Edema R60.9 Acute kidney injury N17.9 Transaminitis R74.01 Hiatal hernia K44.9 Hypokalemia E87.6 Ear fullness H93.8X9 Nausea R11.0 Hypothyroid E03.9 DVT prophylaxis Z29.9
== END 2021-02-17 10:10 | disposition home or self-care (01) | DRG 177 ==
LOC: ED 08:59 → SUATTDRO 11:38 → 2S 11:38 → 2E 02-14 21:17
DX: N17.9 Acute kidney failure, unspecified; Z79.82 Long term (current) use of aspirin; I48.0 Paroxysmal atrial fibrillation; K44.9 Diaphragmatic hernia without obstruction or gangrene; I50.31 Acute diastolic (congestive) heart failure; E86.0 Dehydration; E87.6 Hypokalemia; I34.0 Nonrheumatic mitral (valve) insufficiency; J12.82 Pneumonia due to coronavirus disease 2019; R74.01 Elevation of levels of liver transaminase levels; K29.70 Gastritis, unspecified, without bleeding; J96.01 Acute respiratory failure with hypoxia; E03.9 Hypothyroidism, unspecified; U07.1 COVID-19